=== PATIENT | male | born 1970 | race Caucasian/White ===

== ENCOUNTER → 2019-12-19 10:51 | Outpatient (BNVA) | payer OTHER, SELFPAY | PROVIDERS: PCP Nurse Practitioner Family; Referring Provider Nurse Practitioner Family; Visit Provider Student in an Organized Health Care Education/Training Program | DX: M06.00 Rheumatoid arthritis without rheumatoid factor, unspecified site (principal); M10.9 Gout, unspecified; Z79.899 Other long term (current) drug therapy | CPT/HCPCS: 99214 ==

== ENCOUNTER 2019-12-19 19:16 | Outpatient (REF) | payer OTHER, SELFPAY ==
[2019-12-19 12:21] LABS: MANUAL DIFF FLAG NO
[2019-12-19 12:23] LABS: Basophils Absolute Auto 0.1 X10*3/uL (0.0-0.2); Basophils Percent Auto 1.4 % (0-2); Eosinophils Absolute Auto 0.4 X10*3/uL (0.0-0.4); Eosinophils Percent Auto 5.3 % (0-4); Hematocrit 34.8 % (42-52); Hemoglobin 11.7 g/dl (14.0-18.0); Imm Gran Abs Auto 0.01 X10*3/uL (0.00-0.03); Imm Gran Pct Auto 0.1 % (0.0-0.4); Lymphocytes Absolute Auto 2.1 X10*3/uL (1.2-4.9); Lymphocytes Percent Auto 28.4 % (20-40); Mean Corpuscular HGB Conc 33.6 g/dl (31.0-36.0); Mean Corpuscular Hemoglobin 30.6 pg (27.0-33.0); Mean Corpuscular Volume 91.1 fL (80-98); Mean Platelet Volume 9.5 fL (9.4-12.4); Monocytes Absolute Auto 0.5 X10*3/uL (0.1-1.2); Monocytes Percent Auto 6.6 % (2-11); Neutrophils Absolute Auto 4.2 X10*3/uL (2.0-8.3); Neutrophils Percent Auto 58.2 % (45-73); Platelet Count 247 X10*3/uL (160-400); Red Blood Count 3.82 X10*6/uL (4.60-5.80); Red Cell Distribution Width 13.2 % (11.0-16.0); White Blood Count 7.3 X10*3/uL (4.8-10.8)
[2019-12-19 13:07] LABS: Erythrocyte Sedimentation Rate 13 MM/HR (0-15)
[2019-12-19 13:38] LABS: Alanine Aminotransferase 28 U/L (0-40); Albumin Level 4.4 g/dL (3.5-5.0); Alkaline Phosphatase 92 U/L (39-117); Anion Gap 13 (12-20); Aspartate Amino Transferase 18 U/L (5-37); Bilirubin Total 0.4 mg/dL (0.0-1.0); Blood Urea Nitrogen 29 mg/dL (9-16); C Reactive Protein 0.84 mg/dL (< or = 0.50); Calcium 9.3 mg/dL (8.4-10.2); Carbon Dioxide 29 mmol/L (22-29); Chloride 107 mmol/L (96-108); Estimated Glomerular Filt Rate > 60; Glucose Random 100 mg/dL (60-115); Potassium 4.1 mmol/l (3.3-5.1); Sodium 145 mmol/L (135-145); Total Protein 7.2 g/dL (6.5-8.0)
== END 2019-12-19 19:17 | disposition home or self-care (01) ==
LOC: HO.LNP 19:16
PROVIDERS: Visit Provider Student in an Organized Health Care Education/Training Program
DX: M06.9 Rheumatoid arthritis, unspecified (principal)
CPT/HCPCS: 36415; 80053; 85025; 85652; 86140

== ENCOUNTER → 2020-03-25 12:56 | Outpatient (BNVA) | payer OTHER, SELFPAY | PROVIDERS: PCP Nurse Practitioner Family; Referring Provider Nurse Practitioner Family; Visit Provider Student in an Organized Health Care Education/Training Program | DX: Z76.89 Persons encountering health services in other specified circumstances (principal) ==

== ENCOUNTER 2020-07-23 13:12 | Outpatient (REF) | payer OTHER, SELFPAY ==
[2020-07-23 14:14] LABS: MANUAL DIFF FLAG NO
[2020-07-23 14:24] LABS: Basophils Absolute Auto 0.1 X10*3/uL (0.0-0.2); Basophils Percent Auto 1.9 % (0-2); Eosinophils Absolute Auto 0.3 X10*3/uL (0.0-0.4); Eosinophils Percent Auto 5.5 % (0-4); Hematocrit 36.4 % (42-52); Hemoglobin 11.6 g/dl (14.0-18.0); Imm Gran Abs Auto 0.01 X10*3/uL (0.00-0.03); Imm Gran Pct Auto 0.2 % (0.0-0.4); Lymphocytes Absolute Auto 1.9 X10*3/uL (1.2-4.9); Lymphocytes Percent Auto 32.1 % (20-40); Mean Corpuscular HGB Conc 31.9 g/dl (31.0-36.0); Mean Corpuscular Hemoglobin 28.9 pg (27.0-33.0); Mean Corpuscular Volume 90.5 fL (80-98); Monocytes Absolute Auto 0.3 X10*3/uL (0.1-1.2); Monocytes Percent Auto 5.2 % (2-11); Neutrophils Absolute Auto 3.2 X10*3/uL (2.0-8.3); Neutrophils Percent Auto 55.1 % (45-73); Platelet Count 233 X10*3/uL (160-400); Red Blood Count 4.02 X10*6/uL (4.60-5.80); Red Cell Distribution Width 12.9 % (11.0-16.0); White Blood Count 5.8 X10*3/uL (4.8-10.8)
[2020-07-23 14:56] LABS: Alanine Aminotransferase 20 U/L (0-40); Albumin Level 4.2 g/dL (3.5-5.0); Alkaline Phosphatase 85 U/L (39-117); Anion Gap 12 (12-20); Aspartate Amino Transferase 20 U/L (5-37); Bilirubin Total 0.6 mg/dL (0.0-1.0); Blood Urea Nitrogen 18 mg/dL (9-16); Calcium 9.3 mg/dL (8.4-10.2); Carbon Dioxide 31 mmol/L (22-29); Chloride 101 mmol/L (96-108); Estimated Glomerular Filt Rate > 60; Glucose Random 89 mg/dL (60-115); Iron 55 mcg/dL (45-160); Percent Iron Saturation 16 % (15-50); Potassium 4.4 mmol/L (3.3-5.1); Sodium 140 mmol/L (135-145); Total Iron Binding Capacity 347 mcg/dL (228-428); Unsaturated Iron Binding 292 ug/dL
[2020-07-23 14:57] LABS: Ferritin 67 ng/mL (20-250); TSH reflex Free T4 2.08 uIU/mL (0.32-4.0)
[2020-07-23 15:02] LABS: Vitamin B12 633 pg/mL (200-900)
== END 2020-07-23 13:13 | disposition home or self-care (01) ==
LOC: HO.HMGCLDS 13:12
PROVIDERS: Student in an Organized Health Care Education/Training Program; PCP Nurse Practitioner Family; Visit Provider Nurse Practitioner Family
DX: M06.00 Rheumatoid arthritis without rheumatoid factor, unspecified site (principal); R53.83 Other fatigue
CPT/HCPCS: 36415; 80053; 82607; 82728; 83540; 84443; 85025; 86140

== ENCOUNTER → 2020-07-30 09:32 | Outpatient (BNVA) | payer OTHER, SELFPAY | PROVIDERS: PCP Nurse Practitioner Family; Visit Provider Student in an Organized Health Care Education/Training Program | DX: M06.00 Rheumatoid arthritis without rheumatoid factor, unspecified site (principal); M1A.00X0 Idiopathic chronic gout, unspecified site, without tophus (tophi); Z79.899 Other long term (current) drug therapy | CPT/HCPCS: 99212 ==

== ENCOUNTER 2020-09-30 | Outpatient (REF) | payer OTHER, SELFPAY ==
[2020-10-06 07:36] LABS: FIT1 NEGATIVE (NEGATIVE)
[2020-10-06 07:37] LABS: FIT Int Ctl YES
== END 2020-09-30 00:01 | disposition home or self-care (01) ==
LOC: HO.LNP
PROVIDERS: Visit Provider Nurse Practitioner Family
DX: Z12.11 Encounter for screening for malignant neoplasm of colon (principal); D64.9 Anemia, unspecified
CPT/HCPCS: 82274

== ENCOUNTER 2020-10-28 14:38 | Outpatient (REF) | payer OTHER, SELFPAY ==
[2020-10-28 16:23] LABS: MANUAL DIFF FLAG NO
[2020-10-28 16:26] LABS: Basophils Absolute Auto 0.1 X10*3/uL (0.0-0.2); Basophils Percent Auto 0.9 % (0-2); Eosinophils Absolute Auto 0.3 X10*3/uL (0.0-0.4); Eosinophils Percent Auto 4.9 % (0-4); Hematocrit 33.7 % (42-52); Imm Gran Abs Auto 0.02 X10*3/uL (0.00-0.03); Imm Gran Pct Auto 0.4 % (0.0-0.4); Lymphocytes Absolute Auto 1.3 X10*3/uL (1.2-4.9); Lymphocytes Percent Auto 22.9 % (20-40); Mean Corpuscular HGB Conc 32.6 g/dl (31.0-36.0); Mean Corpuscular Hemoglobin 30.2 pg (27.0-33.0); Mean Corpuscular Volume 92.6 fL (80-98); Mean Platelet Volume 10.1 fL (9.4-12.4); Monocytes Absolute Auto 0.4 X10*3/uL (0.1-1.2); Monocytes Percent Auto 6.7 % (2-11); Neutrophils Absolute Auto 3.6 X10*3/uL (2.0-8.3); Neutrophils Percent Auto 64.2 % (45-73); Platelet Count 247 X10*3/uL (160-400); Red Blood Count 3.64 X10*6/uL (4.60-5.80); Red Cell Distribution Width 13.5 % (11.0-16.0); White Blood Count 5.6 X10*3/uL (4.8-10.8)
[2020-10-28 16:58] LABS: Alanine Aminotransferase 16 U/L (0-40); Albumin Level 4.1 g/dL (3.5-5.0); Alkaline Phosphatase 81 U/L (39-117); Anion Gap 11 (12-20); Aspartate Amino Transferase 16 U/L (5-37); Bilirubin Total 0.5 mg/dL (0.0-1.0); Blood Urea Nitrogen 17 mg/dL (9-16); C Reactive Protein 0.84 mg/dL (< or = 0.50); Calcium 9.2 mg/dL (8.4-10.2); Carbon Dioxide 29 mmol/L (22-29); Chloride 104 mmol/L (96-108); Estimated Glomerular Filt Rate > 60; Glucose Random 100 mg/dL (60-115); Potassium 4.4 mmol/L (3.3-5.1); Sodium 140 mmol/L (135-145); Total Protein 6.9 g/dL (6.5-8.0); Uric Acid 7.4 mg/dL (3.4-7.0)
== END 2020-10-28 14:39 | disposition home or self-care (01) ==
LOC: HO.HMGCLDS 14:38
PROVIDERS: PCP Nurse Practitioner Family; Visit Provider Student in an Organized Health Care Education/Training Program
DX: M06.00 Rheumatoid arthritis without rheumatoid factor, unspecified site (principal); M1A.00X0 Idiopathic chronic gout, unspecified site, without tophus (tophi)
CPT/HCPCS: 36415; 80053; 84550; 85025; 86140

== ENCOUNTER → 2020-11-03 13:04 | Outpatient (BNVA) | payer OTHER, SELFPAY | PROVIDERS: PCP Nurse Practitioner Family; Visit Provider Nurse Practitioner Family | DX: M06.00 Rheumatoid arthritis without rheumatoid factor, unspecified site (principal); M1A.00X0 Idiopathic chronic gout, unspecified site, without tophus (tophi); Z79.899 Other long term (current) drug therapy | CPT/HCPCS: 99212 ==

== ENCOUNTER 2021-04-20 07:48 | Outpatient (REF) | payer OTHER, SELFPAY ==
[2021-04-20 11:32] LABS: Appearance Urine CLEAR; Color Urine YELLOW; Glucose Urine UA NEG (NEG); Leukocyte Esterase Urine NEG (NEG); Nitrite Urine NEG (NEG); Specific Gravity - Urine 1.015 (1.005-1.025); Urine Blood NEG (NEG); Urine Ketones NEG (NEG); Urine Protein NEG (NEG-TRACE)
[2021-04-20 11:36] LABS: MANUAL DIFF FLAG NO
[2021-04-20 11:38] LABS: Basophils Absolute Auto 0.1 X10*3/uL (0.0-0.2); Basophils Percent Auto 1.4 % (0-2); Eosinophils Absolute Auto 0.2 X10*3/uL (0.0-0.4); Eosinophils Percent Auto 3.6 % (0-4); Hematocrit 33.5 % (42.0-52.0); Hemoglobin 10.6 g/dl (14.0-18.0); Lymphocytes Absolute Auto 1.5 X10*3/uL (1.2-4.9); Lymphocytes Percent Auto 34.8 % (20-40); Mean Corpuscular HGB Conc 31.6 g/dl (31.0-36.0); Mean Corpuscular Hemoglobin 28.7 pg (27.0-33.0); Mean Corpuscular Volume 90.8 fL (80.0-98.0); Mean Platelet Volume 9.8 fL (9.4-12.4); Monocytes Absolute Auto 0.4 X10*3/uL (0.1-1.2); Monocytes Percent Auto 7.9 % (2-11); Neutrophils Absolute Auto 2.3 x10*3/uL (2.0-8.3); Neutrophils Percent Auto 52.3 % (45-73); Platelet Count 358 X10*3/uL (160-400); Red Blood Count 3.69 X10*6/uL (4.60-5.80); White Blood Count 4.4 X10*3/uL (4.8-10.8)
[2021-04-20 12:00] LABS: Alanine Aminotransferase 21 U/L (0-40); Albumin Level 3.9 g/dL (3.5-5.0); Alkaline Phosphatase 80 U/L (39-117); Anion Gap 9 (12-20); Aspartate Amino Transferase 18 U/L (5-37); Bilirubin Total 0.6 mg/dL (0.0-1.0); Blood Urea Nitrogen 13 mg/dL (9-16); C Reactive Protein 0.73 mg/dL (< or = 0.50); Carbon Dioxide 31 mmol/L (22-29); Chloride 102 mmol/L (96-108); Cholesterol 158 mg/dL; Estimated Glomerular Filt Rate > 60; Glucose Fasting 105 mg/dL (60-99); HDL Cholesterol 44 mg/dL; LDL Cholesterol Calculated 95 mg/dl; Potassium 4.3 mmol/L (3.3-5.1); Sodium 138 mmol/L (135-145); Total Protein 7.6 g/dL (6.5-8.0); Triglycerides 96 mg/dL
[2021-04-20 12:21] LABS: Prostate Specific Antigen Scr 1.92 ng/mL (<0.05-4.0); TSH reflex Free T4 0.53 uIU/mL (0.32-4.0)
[2021-04-20 12:29] LABS: Erythrocyte Sedimentation Rate 65 MM/HR (0-15)
[2021-04-20 14:14] LABS: Iron 60 mcg/dL (45-160); Percent Iron Saturation 20 % (15-50); Total Iron Binding Capacity 301 mcg/dL (228-428); Unsaturated Iron Binding 241 ug/dL
[2021-04-20 14:32] LABS: Ferritin 105 ng/mL (20-250)
== END 2021-04-20 07:49 | disposition home or self-care (01) ==
LOC: HO.HMGCLDS 07:48
PROVIDERS: PCP Nurse Practitioner Family; Visit Provider Nurse Practitioner Family
DX: Z00.00 Encounter for general adult medical examination without abnormal findings (principal); Z12.5 Encounter for screening for malignant neoplasm of prostate; M06.00 Rheumatoid arthritis without rheumatoid factor, unspecified site; M1A.00X0 Idiopathic chronic gout, unspecified site, without tophus (tophi)
CPT/HCPCS: 36415; 80053; 80061; 81003; 82728; 83540; 84153; 84443; 84550; 85025; 85652; 86140

== ENCOUNTER → 2021-05-17 11:01 | Outpatient (BNVA) | payer OTHER, SELFPAY | PROVIDERS: PCP Nurse Practitioner Family; Visit Provider Orthopaedic Surgery | DX: M12.811 Other specific arthropathies, not elsewhere classified, right shoulder (principal); M06.00 Rheumatoid arthritis without rheumatoid factor, unspecified site; Z79.899 Other long term (current) drug therapy | CPT/HCPCS: 20610; 99202; J1100 ==

== ENCOUNTER → 2021-05-27 08:41 | Outpatient (BNVA) | payer OTHER, SELFPAY | PROVIDERS: PCP Nurse Practitioner Family; Visit Provider Nurse Practitioner Family | DX: M06.00 Rheumatoid arthritis without rheumatoid factor, unspecified site (principal); M1A.00X0 Idiopathic chronic gout, unspecified site, without tophus (tophi); Z79.899 Other long term (current) drug therapy | CPT/HCPCS: 99212 ==

== ENCOUNTER → 2021-06-29 13:01 | Outpatient (BNVA) | payer OTHER, SELFPAY | PROVIDERS: PCP Nurse Practitioner Family; Visit Provider Nurse Practitioner Family | DX: M06.00 Rheumatoid arthritis without rheumatoid factor, unspecified site (principal); M1A.00X0 Idiopathic chronic gout, unspecified site, without tophus (tophi); D64.9 Anemia, unspecified; Z79.899 Other long term (current) drug therapy | CPT/HCPCS: 99212 ==

== ENCOUNTER → 2021-07-08 15:32 | Outpatient (BNVA) | payer OTHER, SELFPAY | PROVIDERS: PCP Nurse Practitioner Family; Visit Provider Orthopaedic Surgery | DX: M25.562 Pain in left knee (principal) | CPT/HCPCS: 20610; 99212; J1100 ==

== ENCOUNTER 2021-07-26 14:58 | Outpatient (REF) | payer OTHER, SELFPAY ==
--- NOTE | ~2021-07-26 | XR_ITS ---
EXAMINATION: XR KNEE, LEFT XR FOOT, RIGHT XR FOOT, LEFT XR ANKLE, RIGHT XR ANKLE, LEFT XR HAND AND WRIST, RIGHT XR HAND AND WRIST, LEFT CLINICAL INFORMATION: Rheumatoid arthritis. COMPARISON: None TECHNIQUE: 3 views each foot. 2 views each ankle. 3 views each wrist and 2 views left knee. FINDINGS: RIGHT FOOT: There is moderate hallux valgus deformity 1st MTP joint with moderate periarticular spurring and loss of joint space. Also loss of PIP joint first digit is noted. No visible acute fracture or dislocation seen. There are large retrocalcaneal and small to moderate size calcaneal heel enthesophytes. The ankle mortise and subtalar joints are normal. RIGHT ANKLE: The ankle mortise and subtalar joints are normal. The soft tissues are normal. LEFT FOOT: There is moderate hallux valgus deformity 1st MTP joint with periarticular spurring and loss of joint space. No visible acute fracture, dislocation or subluxation seen. No bony erosive changes. The soft tissues are normal. LEFT ANKLE: There are a moderate size retrocalcaneal and small calcaneal heel enthesophytes. The ankle mortise and subtalar joints are normal. There is dorsal intertarsal spurring. The soft tissues are normal. LEFT KNEE: There is minimal loss of patellofemoral compartment joint space with anterior superior patellar enthesophyte. No abnormal joint effusion seen. The soft tissues are normal. RIGHT HAND/WRIST: There is mild loss of first digit PIP joint space with periarticular spurring. Minimal loss of PIP and DIP joint space of all digits is seen. There is minimal periapical spurring fifth digit. No acute fracture, dislocation or bony erosive changes. The soft tissues are normal. LEFT HAND/WRIST: There is soft tissue radiopaque foreign body along the radial aspect of the thumb. There is loss of PIP and DIP joint space all digits with periarticular spurring. The soft tissues are normal. XR/XR foot LT min 3V IMPRESSION: Mild degenerative changes of both hands with minimal periarticular spurring as described above. No acute fracture or dislocation. There is a radiopaque foreign body in the radial aspect of the 1st metacarpal. Mild degenerative changes patellofemoral compartment left knee with anterior superior patellar enthesophytes. Mild degenerative changes with loss of joint space and periarticular spurring in MTP joint both feet. Also visualized are degenerative arthritic changes PIP joint first digit right foot. There are small calcaneal heel and retrocalcaneal enthesophytes.
[2021-07-26 16:30] LABS: Appearance Urine CLEAR; Color Urine YELLOW; Glucose Urine UA NEG (NEG); Leukocyte Esterase Urine NEG (NEG); Nitrite Urine NEG (NEG); PH 5.5 (5.0-8.0); Specific Gravity - Urine >= 1.030 (1.005-1.025); Urine Blood NEG (NEG); Urine Ketones NEG (NEG); Urine Protein NEG (NEG-TRACE)
[2021-07-26 16:46] LABS: Alanine Aminotransferase 27 U/L (0-40); Albumin Level 3.9 g/dL (3.5-5.0); Alkaline Phosphatase 63 U/L (39-117); Anion Gap 11 (12-20); Aspartate Amino Transferase 12 U/L (5-37); Bilirubin Total 0.4 mg/dL (0.0-1.0); Blood Urea Nitrogen 27 mg/dL (9-16); Carbon Dioxide 28 mmol/L (22-29); Chloride 99 mmol/L (96-108); Cholesterol 176 mg/dL; Estimated Glomerular Filt Rate 54; Glucose Fasting 119 mg/dL (60-99); HDL Cholesterol 49 mg/dL; Iron 67 mcg/dL (45-160); LDL Cholesterol Calculated 96 mg/dl; Percent Iron Saturation 19 % (15-50); Potassium 4.9 mmol/L (3.3-5.1); Sodium 133 mmol/L (135-145); Total Iron Binding Capacity 347 mcg/dL (228-428); Triglycerides 155 mg/dL; Unsaturated Iron Binding 280 ug/dL
[2021-07-26 17:08] LABS: TSH reflex Free T4 0.94 uIU/mL (0.32-4.0)
[2021-07-26 17:09] LABS: Ferritin 87 ng/mL (20-250)
[2021-07-27 04:38] LABS: HBS Num1 5.92 mIU/mL (0-7.99); HBc Num1 0.16 S/CO (0.00-0.79); HBsAGNum1 0.22 S/CO (0.00-0.99); Hepatitis B Core Antibody Nonreactive (Nonreactive); Hepatitis B Surface Antigen Negative (Negative); ~HepC Num1 0.13 S/CO (0.00-0.79); ~Hepatitis B Surface Antibody NONREACTIVE (Nonreactive); ~Hepatitis C Antibody Nonreactive (Nonreactive)
[2021-07-28 04:10] LABS: Hepatitis A Antibody IgM 0.24 Index (0-0.79); ~Hepatitis A Antibody IgM Nonreactive (Nonreactive)
== END 2021-07-26 14:59 | disposition home or self-care (01) ==
LOC: HO.HMGCX 14:58
PROVIDERS: Absent Provider Nurse Practitioner Family; PCP Nurse Practitioner Family; Visit Provider Nurse Practitioner Family
DX: Z11.1 Encounter for screening for respiratory tuberculosis (principal); M25.572 Pain in left ankle and joints of left foot; M25.571 Pain in right ankle and joints of right foot; M25.562 Pain in left knee; F32.9 Major depressive disorder, single episode, unspecified; D64.9 Anemia, unspecified; M06.00 Rheumatoid arthritis without rheumatoid factor, unspecified site
CPT/HCPCS: 36415; 73110; 73130; 73560; 73600; 73630; 80053; 80061; 81003; 82728; 83540; 84443; 86704; 86706; 86709; 86803; 87340

== ENCOUNTER → 2021-07-27 10:38 | Outpatient (BNVA) | payer OTHER, SELFPAY | PROVIDERS: PCP Nurse Practitioner Family; Visit Provider Nurse Practitioner Family | DX: Z13.89 Encounter for screening for other disorder (principal) ==

== ENCOUNTER 2021-07-27 10:45 | Observation (INO) | payer OTHER, SELFPAY ==
[2021-07-27] VITALS (10 sets, daily range): BP systolic 99–146; BP diastolic 58–98; PULSE 48–91; RESP 12–18; TEMP 36.1–36.9; O2SAT 94–99; BMI 33.2
--- NOTE | 2021-07-27 | ECG_ITS ---
Test Reason : DIZZINESS Blood Pressure : / mmHG Vent. Rate : 051 BPM Atrial Rate : 051 BPM P-R Int : 200 ms QRS Dur : 078 ms QT Int : 472 ms P-R-T Axes : 033 022 040 degrees QTc Int : 435 ms Sinus bradycardia Otherwise normal ECG No previous ECGs available Referred By: Generic ED Physician Electronically Signed By:COLLIN NOLASCO MD
--- NOTE | ~2021-07-27 | XR_ITS ---
EXAMINATION: XR CHEST CLINICAL INFORMATION: Hypotension COMPARISON: None TECHNIQUE: Frontal view of the chest was obtained. FINDINGS: The cardiac and mediastinal contours are normal. The lungs are clear. There is no pleural effusion or pneumothorax. There are degenerative changes of the spine. XR/XR chest 1V IMPRESSION: No evidence for acute disease in the chest.
[2021-07-27 11:20] LABS: MANUAL DIFF FLAG NO
[2021-07-27 11:23] LABS: Basophils Absolute Auto 0.1 X10*3/uL (0.0-0.2); Basophils Percent Auto 0.7 % (0-2); Eosinophils Absolute Auto 0.2 X10*3/uL (0.0-0.4); Eosinophils Percent Auto 2.1 % (0-4); Hematocrit 31.8 % (42.0-52.0); Hemoglobin 10.5 g/dl (14.0-18.0); Imm Gran Abs Auto 0.02 X10*3/uL (0.00-0.03); Imm Gran Pct Auto 0.2 % (0.0-0.4); Lymphocytes Absolute Auto 2.6 X10*3/uL (1.2-4.9); Lymphocytes Percent Auto 30.1 % (20-40); Mean Corpuscular Hemoglobin 29.5 pg (27.0-33.0); Mean Corpuscular Volume 89.3 fL (80.0-98.0); Mean Platelet Volume 9.3 fL (9.4-12.4); Monocytes Absolute Auto 0.6 X10*3/uL (0.1-1.2); Monocytes Percent Auto 6.9 % (2-11); Neutrophils Absolute Auto 5.2 x10*3/uL (2.0-8.3); Platelet Count 314 X10*3/uL (160-400); Red Blood Count 3.56 X10*6/uL (4.60-5.80); White Blood Count 8.7 X10*3/uL (4.8-10.8)
--- NOTE | 2021-07-27 11:31 | ED.SYNCOPE ---
HPI - Syncope General Chief Complaint: Dizziness Stated Complaint: Low blood pressure/Dizzy/Abnormal blood work Time Seen by Provider: 07/27/21 11:24 Source: patient Mode of arrival: ambulatory Limitations: no limitations History of Present Illness HPI narrative: 51 years old male came in for evaluation of low blood pressure and feeling dizzy. 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 Patient complained today is dizziness and lightheadedness especially with changing position, otherwise declined any recent change of his medication list, no chest pain, no shortness of breath. Related Data Home Medications Medication Instructions Recorded Confirmed colchicine 0.6 mg capsule 0.6 mg PO DAILY PRN 07/30/20 06/30/21 Previous Rx's Medication Instructions Recorded atorvastatin 10 mg tablet 10 mg PO BEDTIME 90 Days #90 tab 12/30/20 lisinopril 20 mg tablet 20 mg PO DAILY #90 tab 12/30/20 sertraline 25 mg tablet 25 mg PO DAILY 30 Days #90 tab 02/17/21 tramadol 50 mg tablet 50 mg PO TID PRN 30 Days #90 tab 03/24/21 metoprolol succinate 25 mg 25 mg PO DAILY #90 tab 05/26/21 tablet,extended release 24 hr allopurinol 300 mg tablet 300 mg PO DAILY #30 tab 05/27/21 folic acid 1 mg tablet 1 mg PO DAILY #90 tab 06/16/21 prednisone 10 mg tablet 10 mg PO .COMPLEX #18 tab 07/21/21 Allergies Allergy/AdvReac Type Severity Reaction Status Date / Time codeine [CODEINE] Allergy Mild HIVES, Verified 07/08/21 15:34 vomiting ibuprofen [IBUPROFEN] Allergy Unknown HIVES Verified 07/08/21 15:34 Bee stings Allergy Unknown Swelling Uncoded 06/30/21 14:26 Review of Systems Review of Systems: All other systems are reviewed and are negative Constitutional: Reports as per HPI and Reports no additional constitutional complaints Eyes: Reports as per HPI and Reports no additional eye complaints Reports system reviewed and no additional complaints, except as documented Cardiovascular: Reports as per HPI and Reports no additional cardiovascular complaints Respiratory: Reports as per HPI and Reports no additional respiratory complaints Gastrointestinal: Reports as per HPI and Reports no additional gastrointestinal complaints Genitourinary: Reports no additional female genitourinary complaints Musculoskeletal: Reports no additional musculoskeletal complaints Skin/Breast: Reports system reviewed and no additional complaints, except as docu Psychiatric: Reports no additional psychiatric complaints Endocrine: Reports no additional endocrine complaints Hematologic/Lymphatic: Reports no additional hematologic/lymphatic complaints Allergic/Immunologic: Reports no additional allergic/immunologic complaints Reports system reviewed and no additional complaints, except as documented and Reports Abnormal speech present [facility] Past Medical History Medical History Gout Seronegative rheumatoid arthritis Family History Family History Mother Diabetes Maternal Grandfather Gout Social History Social History Household Members: Spouse and Children Housing: House Alcohol intake: current Alcohol intake frequency: holidays/special occasions only Alcohol type: beer and hard liquor Patient Tobacco Use Status: Never used Tobacco Tobacco use type: Cigar Years Smoked: 3 years e-Cigarette/Vaping Use: Never Used Second Hand Smoke Exposure: No Use of substances other than those prescribed or required for medical reasons: No Advance Directives: No Advance Directives Information Provided: No service: No Current occupational status: employed Current occupation: [employer] Current occupational exposures/hazards: No Cognitive needs: No Hearing needs: No Vision needs: No Physical Exam Vital Signs: Vital Signs: Last Vital Signs Temp 98.4 F 07/27/21 11:46 Pulse 58 07/27/21 12:46 Resp 18 07/27/21 12:46 BP 121/83 07/27/21 12:46 Pulse Ox 97 07/27/21 12:46 BMI result Body Mass Index 33.2 Vital signs have been reviewed as appeared to be correct. Blood pressure normal (reportedly by the patient normally higher than that)Heart rate low Respiration rate normal. Temperature normal. Oxygen saturation normal. Appearance: Alert. Oriented X3. No acute distress. Head: Normal external exam. Normocephalic. Atraumatic. No Mcmahan signs noted. No raccoon eyes noted Eyes: PERRLA. EOMI. Conjunctiva and sclera normal. Eyelids normal. ENT: TM's Normal. Pharynx normal. Uvula midline. Moist mucous membranes. No trismus noted. No drooling noted. No muffled voice noted. Neck: Normal inspection. Neck supple. FROM. No adenopathy. Thyroid Normal. No meningeal signs. No neck mass noted. CVS: Normal heart rate and rhythm. Heart sound normal. No murmurs noted. Pulses normal throughout. Respiratory: No respiratory distress. Painless inspiration. Breath sounds normal. No wheezes/rales/rhonchi noted. Chest nontender. No accessory muscle usage noted or decreased air movement noted. Abdomen: Soft and nontender. Bowel sounds normal in all 4 quadrants. No distention noted. No organomegaly noted. No visible injury noted. Back: No CVA tenderness. Full range of motion noted. Skin: Skin warm and dry. Normal skin color. Normal skin turgor. No rashes/lesions/lacerations noted. Extremities: No lower extremity edema. Extremities exhibit normal range of motion. Extremities nontender. Neuro: Oriented X 3. Cranial nerve exam: II-XII are grossly intact No motor deficit. No sensory deficit. Reflexes normal. Course Course Course Narrative: Assessment and plan. 51-year-old male history of hypertension brought 10 from Office for evaluation of lightheadedness, patient found to be bradycardic with lower blood pressure, patient take lisinopril/metoprolol for controlling blood pressure which could be reason for patient's symptoms. Patient also found to be anemic at baseline anemia which could be related to chronic rheumatoid arthritis disease but patient declined any rectal bleeding. Cardiac workup is negative, with elevation of BUN creatinine above patient baseline physical exam did not reveal dehydration. Admitting patient for hydration and checking a renal function, maybe blood pressure medication adjustment. Reevaluation(s) Reevaluation #1: Patient is complaining of epigastric/chest pain described as stabbing pain localized to the epigastric area with no radiation, no difficulty breathing with that, repeat EKG was ordered and reviewed. Time: 12:58 MDM - Syncope Lab Data Attestation: I reviewed the patient's lab results. Result diagrams: 07/27/21 11:15 07/27/21 11:15 Labs: Lab Results 07/27/21 07/27/21 07/27/21 Range/Units 11:15 11:15 11:15 WBC 8.7 (4.8-10.8) X10*3/uL RBC 3.56 L (4.60-5.80) X10*6/uL Hgb 10.5 L (14.0-18.0) g/dl Hct 31.8 L (42.0-52.0) % MCV 89.3 (80.0-98.0) fL MCH 29.5 (27.0-33.0) pg MCHC 33.0 (31.0-36.0) g/dl RDW 14.0 (11.0-16.0) % Plt Count 314 (160-400) X10*3/uL MPV 9.3 L (9.4-12.4) fL Immature Gran % (Auto) 0.2 (0.0-0.4) % Neut % (Auto) 60.0 (45-73) % Lymph % (Auto) 30.1 (20-40) % [place] % (Auto) 6.9 (2-11) % Eos % (Auto) 2.1 (0-4) % Baso % (Auto) 0.7 (0-2) % Lymph # (Auto) 2.6 (1.2-4.9) X10*3/uL [place] # (Auto) 0.6 (0.1-1.2) X10*3/uL Eos # (Auto) 0.2 (0.0-0.4) X10*3/uL Baso # (Auto) 0.1 (0.0-0.2) X10*3/uL Abs Immat Gran (auto) 0.02 (0.00-0.03) X10*3/uL Absolute Neuts (auto) 5.2 (2.0-8.3) x10*3/uL Absolute Nucleated RBC 0.000 (0.0-0.012) X10*3/uL Nucleated RBC % (auto) 0.0 (0.0-0.2) /100WBC Sodium 135 (135-145) mmol/L Potassium 4.0 (3.3-5.1) mmol/L Chloride 99 (96-108) mmol/L Carbon Dioxide 26 (22-29) mmol/L Anion Gap 14 (12-20) BUN 29 H (9-16) mg/dL Creatinine 1.64 H (0.5-1.4) mg/dL Estim Creat Clear Calc 74.1 Estimated GFR 45 Random Glucose 115 (60-115) mg/dL Calcium 9.5 (8.4-10.2) mg/dL Troponin I High Sens < 3.5 (<3.5-35.0) ng/L B-Natriuretic Peptide 156 H (<100) pg/mL COVID-19 (TE) (Negative) COVID-19 Clin Com 07/27/21 Range/Units 12:21 WBC (4.8-10.8) X10*3/uL RBC (4.60-5.80) X10*6/uL Hgb (14.0-18.0) g/dl Hct (42.0-52.0) % MCV (80.0-98.0) fL MCH (27.0-33.0) pg MCHC (31.0-36.0) g/dl RDW (11.0-16.0) % Plt Count (160-400) X10*3/uL MPV (9.4-12.4) fL Immature Gran % (Auto) (0.0-0.4) % Neut % (Auto) (45-73) % Lymph % (Auto) (20-40) % [place] % (Auto) (2-11) % Eos % (Auto) (0-4) % Baso % (Auto) (0-2) % Lymph # (Auto) (1.2-4.9) X10*3/uL [place] # (Auto) (0.1-1.2) X10*3/uL Eos # (Auto) (0.0-0.4) X10*3/uL Baso # (Auto) (0.0-0.2) X10*3/uL Abs Immat Gran (auto) (0.00-0.03) X10*3/uL Absolute Neuts (auto) (2.0-8.3) x10*3/uL Absolute Nucleated RBC (0.0-0.012) X10*3/uL Nucleated RBC % (auto) (0.0-0.2) /100WBC Sodium (135-145) mmol/L Potassium (3.3-5.1) mmol/L Chloride (96-108) mmol/L Carbon Dioxide (22-29) mmol/L Anion Gap (12-20) BUN (9-16) mg/dL Creatinine (0.5-1.4) mg/dL Estim Creat Clear Calc Estimated GFR Random Glucose (60-115) mg/dL Calcium (8.4-10.2) mg/dL Troponin I High Sens (<3.5-35.0) ng/L B-Natriuretic Peptide (<100) pg/mL COVID-19 (TE) Negative (Negative) COVID-19 Clin Com See Note Imaging Data Chest x-ray: Attestation: I personally reviewed and interpreted this imaging study as follows: Radiologist's impression: No evidence for acute disease in the chest. ECG Data Attestation: I personally reviewed and interpreted this ECG as follows: Interpretation: Sinus bradycardia at 51 beats per minute, normal axis deviation, normal intervals, no ST-T changes. Discharge Plan Discharge Clinical Impression: Symptomatic sinus bradycardia, Acute kidney injury, Syncope Patient Disposition: Admitted As Inpatient
[2021-07-27] MEDS: 0.9 % Sodium Chloride 1,000 ML 999 ML IV (11:36)
[2021-07-27 11:38] LABS: Anion Gap 14 (12-20); Blood Urea Nitrogen 29 mg/dL (9-16); Calcium 9.5 mg/dL (8.4-10.2); Carbon Dioxide 26 mmol/L (22-29); Chloride 99 mmol/L (96-108); Creatinine Clr Calc Pharmacy 74.1; Estimated Glomerular Filt Rate 45; Glucose Random 115 mg/dL (60-115); Sodium 135 mmol/L (135-145)
[2021-07-27 11:43] LABS: Troponin-I High Sensitivity < 3.5 ng/L (<3.5-35.0)
[2021-07-27 11:51] LABS: B Type Natriuretic Peptide 156 pg/mL (<100)
[2021-07-27 12:49] LABS: COVID-19 Test Negative (Negative); IDNOW Serial# 9DB6401D
--- NOTE | 2021-07-27 12:50 | PC.NURSE ---
Pt is alert, no dizziness/lightheadedness at this time. skin pwd. no neuro deficits. at bedside. all aware of plan of care. c/o chest pain/tightness, intermittent while at rest radiates to upper chest. no diaphoresis, sob, . also c/o thirst and fatigue.
--- NOTE | 2021-07-27 12:57 | ECG_ITS ---
Test Reason : cp Blood Pressure : / mmHG Vent. Rate : 046 BPM Atrial Rate : 046 BPM P-R Int : 198 ms QRS Dur : 084 ms QT Int : 476 ms P-R-T Axes : 025 012 031 degrees QTc Int : 416 ms Sinus bradycardia with sinus arrhythmia Otherwise normal ECG When compared with ECG of 27-JUL-2021 11:05, No significant change was found Referred By: Flower Mohan Electronically Signed By:COLLIN NOLASCO MD
--- NOTE | 2021-07-27 12:58 | P.HPHOSP_ITS ---
History of Present Illness Date of Service: 07/27/21 Chief Complaint: Near-syncope 51-year-old male with a steroid negative rheumatoid arthritis, hypertension who presented with a near syncopal episode. Patient reports that yesterday he had an episode where he bent to pickle cutter something and when he stood up he passed out briefly. Today he was at rheumatology office for routine followup and he was noted to have a low heart rate in the 40s and that therefore sent to the emergency room to be evaluated. His blood pressure while in the emergency room has been normal his heart rate was as low as 43 but is much better now presently a 58 blood pressure is 121/83. Report no dizziness at this point no shortness of breath no dizziness no chest pain. He takes lisinopril and metoprolol for blood pressure. Creatinine is 1.69 which is above his baseline Review of Systems Review of Systems: Gen: no fever Resp: no sob, no cough CV: no chest, no RAMIREZ, no leg edema GI: No n/v, no abd pain Neuro: No confusion, no dizziness at the present time. 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 Rotator cuff arthropathy of right shoulder Seronegative rheumatoid arthritis Family History Mother Diabetes Maternal Grandfather Gout Social History Household Members: Spouse and Children Housing: House Alcohol intake: current Alcohol intake frequency: holidays/special occasions only Alcohol type: beer and hard liquor Patient Tobacco Use Status: Never used Tobacco Tobacco use type: Cigar Years Smoked: 3 years e-Cigarette/Vaping Use: Never Used Second Hand Smoke Exposure: No Use of substances other than those prescribed or required for medical reasons: No Advance Directives: No Advance Directives Information Provided: No service: No Current occupational status: employed Current occupation: [employer] Current occupational exposures/hazards: No Cognitive needs: No Hearing needs: No Vision needs: No Meds Allergies Allergy/AdvReac Type Severity Reaction Status Date / Time codeine [CODEINE] Allergy Mild HIVES, Verified 07/08/21 15:34 vomiting ibuprofen [IBUPROFEN] Allergy Unknown HIVES Verified 07/08/21 15:34 Bee stings Allergy Unknown Swelling Uncoded 06/30/21 14:26 Active Medications: Current Medications Pharmacy Consult (Consult Rx Perform Med Rec) 1 each MISCELLANE ONCE PRN PRN Reason: Consult order Home Medications Medication Instructions Recorded Confirmed Last Taken Type colchicine 0.6 mg capsule 0.6 mg PO DAILY PRN 07/30/20 06/30/21 Unknown History Physical Exam Vital Signs and Narrative: Vital Signs: Last Vital Signs Temp 98.4 F 07/27/21 11:46 Pulse 58 07/27/21 12:46 Resp 18 07/27/21 12:46 BP 121/83 07/27/21 12:46 Pulse Ox 97 07/27/21 12:46 BMI result Body Mass Index 33.2 Const: Other: Constitutional: Alert, in no distress, overweight. Mental Status: Oriented to person, place and time. Eyes: Pupils are equal, round and reactive to light. Ear, Nose and Throat: Oropharynx clear, mucous membranes moist. Ears and nose without eformities. T Respiratory: Clear to auscultation. No wheezing, rales or rhonchi. Cardiovascular: S1 S2 regular. No murmurs, rubs or gallops. Gastrointestinal: Abdomen soft, non-tender, non-distended. Normal bowel sounds.? Neurologic: Cranial nerves II-XII grossly intact. No focal neurological deficits. Moves all extremities spontaneously.? Skin: No rashes or lesions.? Musculoskeletal: No cyanosis or clubbing. Psychiatric: Normal mood and affect? Results Labs CBC and Chem 7: 07/27/21 11:15 07/27/21 11:15 Labs: Laboratory Results - last 24 hr 07/27/21 07/27/21 07/27/21 11:15 11:15 11:15 MCV 89.3 MCH 29.5 MCHC 33.0 RDW 14.0 Plt Count 314 MPV 9.3 L Immature Gran % (Auto) 0.2 Neut % (Auto) 60.0 Lymph % (Auto) 30.1 [place] % (Auto) 6.9 Eos % (Auto) 2.1 Baso % (Auto) 0.7 Lymph # (Auto) 2.6 [place] # (Auto) 0.6 Eos # (Auto) 0.2 Baso # (Auto) 0.1 Abs Immat Gran (auto) 0.02 Absolute Neuts (auto) 5.2 Absolute Nucleated RBC 0.000 Nucleated RBC % (auto) 0.0 Anion Gap 14 Estim Creat Clear Calc 74.1 Estimated GFR 45 Random Glucose 115 Calcium 9.5 Troponin I High Sens < 3.5 B-Natriuretic Peptide 156 H COVID-19 (TE) COVID-19 Clin Com 07/27/21 12:21 MCV MCH MCHC RDW Plt Count MPV Immature Gran % (Auto) Neut % (Auto) Lymph % (Auto) [place] % (Auto) Eos % (Auto) Baso % (Auto) Lymph # (Auto) [place] # (Auto) Eos # (Auto) Baso # (Auto) Abs Immat Gran (auto) Absolute Neuts (auto) Absolute Nucleated RBC Nucleated RBC % (auto) Anion Gap Estim Creat Clear Calc Estimated GFR Random Glucose Calcium Troponin I High Sens B-Natriuretic Peptide COVID-19 (TE) Negative COVID-19 Clin Com See Note Imaging Radiologist's Impressions: Impressions Chest X-Ray 07/27/21 11:40 IMPRESSION: No evidence for acute disease in the chest. Assessment and Plan (1) Acute kidney injury: Status: Acute (2) Syncope: Status: Acute Plan 51-year-old male with hypertension for which he takes lisinopril and metoprolol, history of seronegative rheumatoid arthritis presented to the hospital with episode of syncope and noted to have a mild bradycardia and SOFY. I do not signed the bradycardia with a heart rate in the 40s is responsible for his syncope, he may well have an episode of orthostatic hypotension and his renal failure is due to pre renal azotemia. Syncope-- likely due to orthostatic hypotension. Hold BP meds. Hydrate. Check orthostatic hypertension. Cardiac monitoring. SOFY-- likely due to prerenal azotemia, and is expected to improved upon hydration. Repeat lab tomorrow. Sinus bradycardia-- hold metoprolol today and probably restart tomorrow at a lower dose Serum negative rheumatoid arthritis --continue home medication. History of gout--continue allopurinol and colchicine. Hyperlipidemia--continue Lipitor. low risk for DVT. Quality Stroke Does the patient have a stroke diagnosis?: No VTE Prior VTE?: No VTE Risk Level:: Medical - low VTE Device Contraindication: Treatment Not Indicated VTE Drug Contraindication: Treatment Not Indicated
[2021-07-27] MEDS: 0.9 % Sodium Chloride 1,000 ML 125 ML IVCONT ×2 (13:16→20:45)
--- NOTE | 2021-07-27 13:29 | PHA.MEDREC ---
Pharmacy Consult ? Medication Reconciliation Pharmacy has completed the medication reconciliation. Patient finished prednisone course of monday. There are no remarkable issues for provider's attention. Cayla Lawson, PharmD
[2021-07-27 14:36] LABS: Anion Gap 14 (12-20); Blood Urea Nitrogen 28 mg/dL (9-16); Calcium 9.1 mg/dL (8.4-10.2); Carbon Dioxide 27 mmol/L (22-29); Chloride 99 mmol/L (96-108); Creatinine Clr Calc Pharmacy 80.5; Estimated Glomerular Filt Rate 49; Glucose Random 123 mg/dL (60-115); Potassium 4.6 mmol/L (3.3-5.1); Sodium 135 mmol/L (135-145)
--- NOTE | 2021-07-27 15:42 | PC.NURSE ---
Pt reports feeling better. hAs been sleeping. i think it was the fluids . has dropped to mid 40's for HR on monitor but remains asymptomatic. reports ambulating to BR w/o dizziness. awaits admission on floor.
--- NOTE | 2021-07-27 18:48 | MHC.CM.PN ---
NATHAN 07/27. No HCP. Declines. No vaccinations for Covid 19. Lives with . No DME/services. D/C plan is home without services. to provide transportation home.
--- NOTE | 2021-07-27 19:02 | PC.NURSE ---
Addendum entered by Shelly Kang 07/27/21 21:26: report given to CHERRY Beverly Addendum entered by Shelly Kang 07/27/21 19:50: pt is alet and oriented. resting in bed. no signs of acute distress notice. breathing equally unlabored. pt denies any chest pain, sob, or lightheadedness. t on continuos cardiac monitoring Original Note: report received from CHERRY Llanos
[2021-07-27] MEDS: Metoprolol Succinate ER 25 MG TAB.ER.24H PO (20:49)
[2021-07-27] MEDS: lisinopriL 20 MG TABLET PO (20:49)
[2021-07-27] MEDS: allopurinoL 300 MG TABLET PO (20:49)
[2021-07-27] MEDS: Atorvastatin Calcium 10 MG TABLET PO (20:49)
[2021-07-27] MEDS: Folic Acid 1 MG TABLET PO (20:49)
[2021-07-27] MEDS: Sertraline HCL 25 MG TABLET PO (20:49)
[2021-07-27] MEDS: 0.9 % Sodium Chloride Flush 3 ML SYRINGE IVFLUSH (22:25)
[2021-07-28] VITALS: BP 122/80; PULSE 58; RESP 18; TEMP 36.6; O2SAT 97
[2021-07-28 04:00] VITALS: BP 121/84; PULSE 56; RESP 18; TEMP 36.6; O2SAT 97
[2021-07-28] MEDS: 0.9 % Sodium Chloride 1,000 ML 125 ML IVCONT (04:49)
[2021-07-28 07:05] VITALS: BP 112/79; PULSE 51
[2021-07-28 07:32] VITALS: BP 112/79; PULSE 51; RESP 18; TEMP 36.8; O2SAT 98
[2021-07-28 08:25] VITALS: BP 103/67; BP 97/66; PULSE 58; PULSE 64
[2021-07-28] MEDS: traMADoL HCL 50 MG TABLET PO (10:13)
[2021-07-28 11:18] VITALS: BP 104/64; PULSE 55; RESP 18; TEMP 36.1; O2SAT 97
--- NOTE | 2021-07-28 11:20 | MHC.CM.PN ---
per rounds pt to be dcd today no servceis are expected to be needed
[2021-07-28 12:14] LABS: Anion Gap 9 (12-20); Blood Urea Nitrogen 21 mg/dL (9-16); Carbon Dioxide 30 mmol/L (22-29); Chloride 108 mmol/L (96-108); Creatinine Clr Calc Pharmacy 101.3; Estimated Glomerular Filt Rate > 60; Glucose Random 93 mg/dL (60-115); Potassium 4.9 mmol/L (3.3-5.1); Sodium 142 mmol/L (135-145)
--- NOTE | 2021-07-28 12:34 | PM.DS ---
DS: Providers Provider Date of Service: 07/28/21 Date of admission: 07/27/21 12:57 Primary care physician: Naveed Webster [facility] DS: Diagnosis Discharge Diagnosis (1) Acute kidney injury: Status: Resolved (2) Syncope: Status: Resolved DS: Summary Hospital Course Hospital Course: Chief Complaint: ? Near-syncope ?51-year-old male with a steroid negative rheumatoid arthritis, hypertension who presented with a near syncopal episode.? Patient reports that yesterday he had an episode where he bent to meat pickler something and when he stood up he passed out briefly.? Today he was at rheumatology office for routine followup and he was noted to have a low heart rate in the 40s and that therefore sent to the emergency room to be evaluated.? His blood pressure while in the emergency room has been normal his heart rate was as low as 43 but is much better now presently a 58 blood pressure is 121/83.? Report no dizziness at this point no shortness of breath no dizziness no chest pain. ? He takes lisinopril and metoprolol for blood pressure.? Creatinine is 1.69 which is above his baseline Hospital course: He presented with dizziness and syncope upon standing and found to have pulse and low blood pressure and acute renal failue. His presentation was consistent with orthostatic hypotension due BP meds (Lisnopriland Motroprolol)--both of them discontinued with BP still normal, repeat orthostatic is better. There was no arrythmia and aslo encouraged to drink plenty of fluid Time Spent with Patient Time attestation: Total time spent providing and/or coordinating discharge services: Discharge coordination time: Greater than 30 minutes Quality: Safe Use of Opioids Does Pt have an Active Cancer Diagnosis on the Problem List?: No Quality: Stroke Does the patient have a stroke diagnosis?: No Physical Exam Vital Signs: Vital Signs: Last Vital Signs Temp 97.0 F 07/28/21 11:18 Pulse 55 07/28/21 11:18 Resp 18 07/28/21 11:18 BP 104/64 07/28/21 11:18 Pulse Ox 97 07/28/21 11:18 BMI result Body Mass Index 33.2 General: AO X 3, no acute distress Resp: CTA bilateral CVS: S1,S2,RRR GI: +BS, NT, no distention Skin: No rash Neuro: motor grossly intact Psych: appropriate affect DS: Data Data Completed and Pending Labs on day of discharge: Laboratory Results - last 24 hr 07/27/21 07/27/21 07/28/21 12:21 13:59 11:40 Sodium 135 142 Potassium 4.6 4.9 Chloride 99 108 Carbon Dioxide 27 30 H Anion Gap 14 9 L BUN 28 H 21 H Creatinine 1.51 H 1.20 Estim Creat Clear Calc 80.5 101.3 Estimated GFR 49 > 60 Random Glucose 123 H 93 Calcium 9.1 9.0 COVID-19 (TE) Negative COVID-19 Clin Com See Note Discharge Plan Discharge Anticipated Discharge Date/Time: 07/28/21 11:17 Patient Disposition: Home, Self-Care Discharge Diagnosis: Orthostatic hypertension, syncope, SOFY. Referrals: Naveed Webster, CIVIL LITIGATION ATTORNEY- [Primary Care Provider] - 1 Week Discharge Medications: Continued tramadol 50 mg tablet 50 mg PO TID PRN (Reason: pain) 30 Days Qty: 90 5RF sertraline 25 mg tablet 25 mg PO BEDTIME folic acid 1 mg tablet 1 mg PO BEDTIME allopurinol 300 mg tablet 300 mg PO BEDTIME colchicine 0.6 mg capsule 0.6 mg PO DAILY PRN (Reason: Gout) Discontinued lisinopril 20 mg tablet 20 mg PO BEDTIME metoprolol succinate 25 mg tablet extended release 24 hr 25 mg PO BEDTIME No Action methotrexate sodium 2.5 mg tablet 10 mg PO QWEEK Qty: 16 1RF atorvastatin 10 mg tablet 10 mg PO BEDTIME 90 Days Qty: 90 1RF prednisone 10 mg tablet 10 mg PO .COMPLEX Qty: 18 0RF Rx Instructions: 3 tab daily for 3 days, 2 tab daily for 3 days, 1 tab daily for 3 days Discharge Orders: Discharge Order (Routine); Ordered 07/28/21 Ordered By: Emanuel Delgadillo Activity on Discharge: As tolerated Stand Alone Forms: Patient Portal Discharge page Care Plan Goals: Prevent orthostatic hypertension and syncope. Health Concerns: Orthostatic hypotension related syncope, chronic kidney disease, hypertension. Plan of Treatment: Do not take Metoprolol or lisinopril for blood pressure at this time. , drink plenty of fluid. Make appointment to go see you Assessment: as above Discharge Date/Time: 07/28/21 14:23
== END 2021-07-28 14:23 | disposition home or self-care (01) ==
LOC: HO.ED 12:25 → HO.EDOVER 13:19 → HO.IMC 21:02
PROVIDERS: Admitting Provider Internal Medicine; Emergency Provider Emergency Medicine; PCP Nurse Practitioner Family; Visit Provider Internal Medicine
DX: N17.9 Acute kidney failure, unspecified (principal); R55 Syncope and collapse; R00.1 Bradycardia, unspecified; R42 Dizziness and giddiness; I10 Essential (primary) hypertension; E78.5 Hyperlipidemia, unspecified; M10.9 Gout, unspecified; M06.00 Rheumatoid arthritis without rheumatoid factor, unspecified site; D64.9 Anemia, unspecified; R63.1 Polydipsia; R10.13 Epigastric pain; R07.9 Chest pain, unspecified; E66.9 Obesity, unspecified; F17.290 Nicotine dependence, other tobacco product, uncomplicated; Z68.33 Body mass index [BMI] 33.0-33.9, adult; Z20.822 Contact with and (suspected) exposure to COVID-19; Z88.8 Allergy status to other drugs, medicaments and biological substances; Z88.6 Allergy status to analgesic agent; Z91.030 Bee allergy status; Z79.899 Other long term (current) drug therapy
CPT/HCPCS: 36415; 71045; 80048; 83880; 84484; 85025; 87635; 93005; 96360; 96361; 99219; 99285

== ENCOUNTER 2021-08-09 15:20 | Outpatient (REF) | payer OTHER, SELFPAY ==
[2021-08-09 16:33] LABS: MANUAL DIFF FLAG NO
[2021-08-09 16:41] LABS: Basophils Absolute Auto 0.1 X10*3/uL (0.0-0.2); Basophils Percent Auto 1.2 % (0-2); Eosinophils Absolute Auto 0.3 X10*3/uL (0.0-0.4); Eosinophils Percent Auto 5.3 % (0-4); Hematocrit 33.5 % (42.0-52.0); Hemoglobin 10.6 g/dl (14.0-18.0); Imm Gran Abs Auto 0.02 X10*3/uL (0.00-0.03); Imm Gran Pct Auto 0.4 % (0.0-0.4); Lymphocytes Absolute Auto 1.8 X10*3/uL (1.2-4.9); Mean Corpuscular HGB Conc 31.6 g/dl (31.0-36.0); Mean Corpuscular Hemoglobin 29.5 pg (27.0-33.0); Mean Corpuscular Volume 93.3 fL (80.0-98.0); Mean Platelet Volume 9.6 fL (9.4-12.4); Monocytes Absolute Auto 0.4 X10*3/uL (0.1-1.2); Monocytes Percent Auto 7.3 % (2-11); Neutrophils Absolute Auto 2.5 x10*3/uL (2.0-8.3); Neutrophils Percent Auto 49.8 % (45-73); Platelet Count 282 X10*3/uL (160-400); Red Blood Count 3.59 X10*6/uL (4.60-5.80); Red Cell Distribution Width 14.2 % (11.0-16.0); White Blood Count 5.1 X10*3/uL (4.8-10.8)
[2021-08-09 16:57] LABS: Alanine Aminotransferase 26 U/L (0-40); Albumin Level 4.1 g/dL (3.5-5.0); Alkaline Phosphatase 79 U/L (39-117); Anion Gap 12 (12-20); Aspartate Amino Transferase 21 U/L (5-37); Bilirubin Total 0.3 mg/dL (0.0-1.0); Blood Urea Nitrogen 14 mg/dL (9-16); Calcium 9.3 mg/dL (8.4-10.2); Carbon Dioxide 31 mmol/L (22-29); Chloride 102 mmol/L (96-108); Estimated Glomerular Filt Rate > 60; Glucose Random 120 mg/dL (60-115); Potassium 4.5 mmol/L (3.3-5.1); Sodium 140 mmol/L (135-145); Total Protein 7.2 g/dL (6.5-8.0)
[2021-08-09 17:17] LABS: TSH reflex Free T4 1.07 uIU/mL (0.32-4.0)
[2021-08-09 17:29] LABS: Folate 11.7 ng/mL (> or = 4.0); Vitamin B12 846 pg/mL (200-900)
== END 2021-08-09 15:21 | disposition home or self-care (01) ==
LOC: HO.HMGCLDS 15:20
PROVIDERS: PCP Nurse Practitioner Family; Visit Provider Nurse Practitioner Family
DX: N17.9 Acute kidney failure, unspecified (principal); R53.83 Other fatigue
CPT/HCPCS: 36415; 80053; 82607; 82746; 84443; 85025

== ENCOUNTER → 2021-08-12 10:58 | Outpatient (BNVA) | payer OTHER, SELFPAY | PROVIDERS: PCP Nurse Practitioner Family; Visit Provider Nurse Practitioner Family | DX: M06.00 Rheumatoid arthritis without rheumatoid factor, unspecified site (principal); M1A.00X0 Idiopathic chronic gout, unspecified site, without tophus (tophi); D64.9 Anemia, unspecified | CPT/HCPCS: 99212 ==

== ENCOUNTER 2021-08-30 08:23 | Outpatient (REF) | payer OTHER, SELFPAY ==
[2021-08-30 13:04] LABS: C Reactive Protein 0.53 mg/dL (< or = 0.50); Uric Acid 5.1 mg/dL (3.4-7.0)
[2021-08-30 14:31] LABS: Erythrocyte Sedimentation Rate 23 MM/HR (0-15)
[2021-09-01 21:02] LABS: TS Negative Control Passed; TS Panel A 0; TS Panel B 1; TS Positive Control Passed; TSpotTB Negative (Negative)
== END 2021-08-30 08:24 | disposition home or self-care (01) ==
LOC: HO.HMGCLDS 08:23
PROVIDERS: Absent Provider Nurse Practitioner Family; PCP Nurse Practitioner Family; Referring Provider Internal Medicine; Visit Provider Nurse Practitioner Family
DX: M1A.00X0 Idiopathic chronic gout, unspecified site, without tophus (tophi) (principal); M06.00 Rheumatoid arthritis without rheumatoid factor, unspecified site; Z11.1 Encounter for screening for respiratory tuberculosis
CPT/HCPCS: 36415; 84550; 85652; 86140; 86481

== ENCOUNTER 2021-11-09 13:39 | Outpatient (REF) | payer OTHER, SELFPAY ==
[2021-11-09 16:59] LABS: MANUAL DIFF FLAG NO
[2021-11-09 17:24] LABS: Basophils Absolute Auto 0.1 X10*3/uL (0.0-0.2); Basophils Percent Auto 1.2 % (0-2); Eosinophils Absolute Auto 0.2 X10*3/uL (0.0-0.4); Eosinophils Percent Auto 2.3 % (0-4); Hemoglobin 13.7 g/dl (14.0-18.0); Imm Gran Abs Auto 0.02 X10*3/uL (0.00-0.03); Imm Gran Pct Auto 0.3 % (0.0-0.4); Lymphocytes Absolute Auto 1.7 X10*3/uL (1.2-4.9); Lymphocytes Percent Auto 22.3 % (20-40); Mean Corpuscular HGB Conc 33.4 g/dl (31.0-36.0); Mean Corpuscular Hemoglobin 29.5 pg (27.0-33.0); Mean Corpuscular Volume 88.4 fL (80.0-98.0); Mean Platelet Volume 10.1 fL (9.4-12.4); Monocytes Absolute Auto 0.4 X10*3/uL (0.1-1.2); Monocytes Percent Auto 5.9 % (2-11); Neutrophils Absolute Auto 5.1 x10*3/uL (2.0-8.3); Platelet Count 274 X10*3/uL (160-400); Red Blood Count 4.64 X10*6/uL (4.60-5.80); White Blood Count 7.5 X10*3/uL (4.8-10.8)
[2021-11-09 17:41] LABS: Uric Acid 5.4 mg/dL (3.4-7.0)
[2021-11-09 17:45] LABS: Alanine Aminotransferase 50 U/L (0-40); Albumin Level 4.6 g/dL (3.5-5.0); Alkaline Phosphatase 88 U/L (39-117); Anion Gap 16 (12-20); Aspartate Amino Transferase 34 U/L (5-37); Bilirubin Total 0.6 mg/dL (0.0-1.0); Blood Urea Nitrogen 15 mg/dL (9-16); Calcium 9.8 mg/dL (8.4-10.2); Carbon Dioxide 28 mmol/L (22-29); Chloride 102 mmol/L (96-108); Estimated Glomerular Filt Rate > 60; Glucose Random 97 mg/dL (60-115); Potassium 4.1 mmol/L (3.3-5.1); Sodium 142 mmol/L (135-145); Total Protein 7.9 g/dL (6.5-8.0)
[2021-11-09 18:29] LABS: Erythrocyte Sedimentation Rate 20 MM/HR (0-15)
== END 2021-11-09 13:40 | disposition home or self-care (01) ==
LOC: HO.HMGCLDS 13:39
PROVIDERS: Absent Provider Internal Medicine Rheumatology; PCP Nurse Practitioner Family; Visit Provider Nurse Practitioner Family
DX: I10 Essential (primary) hypertension (principal); M06.00 Rheumatoid arthritis without rheumatoid factor, unspecified site; M1A.00X0 Idiopathic chronic gout, unspecified site, without tophus (tophi); Z79.899 Other long term (current) drug therapy
CPT/HCPCS: 36415; 80053; 84550; 85025; 85652; 86140

== ENCOUNTER 2021-12-28 11:47 | Outpatient (REF) | payer OTHER, SELFPAY ==
[2021-12-28 13:59] LABS: MANUAL DIFF FLAG NO
[2021-12-28 14:17] LABS: Basophils Absolute Auto 0.1 X10*3/uL (0.0-0.2); Basophils Percent Auto 1.5 % (0-2); Eosinophils Absolute Auto 0.3 X10*3/uL (0.0-0.4); Eosinophils Percent Auto 6.3 % (0-4); Hematocrit 32.6 % (42.0-52.0); Hemoglobin 10.4 g/dl (14.0-18.0); Imm Gran Abs Auto 0.02 X10*3/uL (0.00-0.03); Imm Gran Pct Auto 0.4 % (0.0-0.4); Lymphocytes Absolute Auto 1.2 X10*3/uL (1.2-4.9); Lymphocytes Percent Auto 25.7 % (20-40); Mean Corpuscular HGB Conc 31.9 g/dl (31.0-36.0); Mean Corpuscular Hemoglobin 29.3 pg (27.0-33.0); Mean Corpuscular Volume 91.8 fL (80.0-98.0); Mean Platelet Volume 10.4 fL (9.4-12.4); Monocytes Absolute Auto 0.3 X10*3/uL (0.1-1.2); Monocytes Percent Auto 6.5 % (2-11); Neutrophils Absolute Auto 2.7 x10*3/uL (2.0-8.3); Neutrophils Percent Auto 59.6 % (45-73); Platelet Count 265 X10*3/uL (160-400); Red Blood Count 3.55 X10*6/uL (4.60-5.80); Red Cell Distribution Width 13.3 % (11.0-16.0); White Blood Count 4.6 X10*3/uL (4.8-10.8)
[2021-12-28 14:19] LABS: Alanine Aminotransferase 14 U/L (0-40); Alkaline Phosphatase 85 U/L (39-117); Anion Gap 12 (12-20); Aspartate Amino Transferase 17 U/L (5-37); Bilirubin Total 0.3 mg/dL (0.0-1.0); Blood Urea Nitrogen 17 mg/dL (9-16); Carbon Dioxide 30 mmol/L (22-29); Chloride 103 mmol/L (96-108); Estimated Glomerular Filt Rate > 60; Glucose Random 103 mg/dL (60-115); Potassium 4.3 mmol/L (3.3-5.1); Sodium 141 mmol/L (135-145); Total Protein 6.9 g/dL (6.5-8.0)
[2021-12-28 14:20] LABS: Alanine Aminotransferase 13 U/L (0-40); Aspartate Amino Transferase 16 U/L (5-37)
[2021-12-28 14:21] LABS: B Type Natriuretic Peptide 85 pg/mL (<100); Troponin-I High Sensitivity < 3.5 ng/L (<3.5-35.0)
== END 2021-12-28 11:48 | disposition home or self-care (01) ==
LOC: HO.HMGCLDS 11:47
PROVIDERS: Emergency Medicine; Absent Provider Nurse Practitioner Family; PCP Nurse Practitioner Family; Visit Provider Internal Medicine Rheumatology
DX: R06.02 Shortness of breath (principal); R60.0 Localized edema; R10.9 Unspecified abdominal pain; R53.1 Weakness; M06.00 Rheumatoid arthritis without rheumatoid factor, unspecified site; M1A.00X0 Idiopathic chronic gout, unspecified site, without tophus (tophi); R07.81 Pleurodynia; Z79.899 Other long term (current) drug therapy
CPT/HCPCS: 36415; 80053; 83880; 84450; 84460; 84484; 85025

== ENCOUNTER → 2022-01-20 14:01 | Outpatient (BNVA) | payer OTHER, SELFPAY | PROVIDERS: PCP Nurse Practitioner Family; Visit Provider Nurse Practitioner Family | DX: M06.00 Rheumatoid arthritis without rheumatoid factor, unspecified site (principal); M1A.00X0 Idiopathic chronic gout, unspecified site, without tophus (tophi); M79.89 Other specified soft tissue disorders; D64.9 Anemia, unspecified | CPT/HCPCS: 99212 ==

== ENCOUNTER 2022-02-01 09:07 | Outpatient (REF) | payer OTHER, SELFPAY ==
--- NOTE | ~2022-02-01 | XR_ITS ---
EXAMINATION: XR SHOULDER, RIGHT CLINICAL INFORMATION: Right shoulder pain COMPARISON: Radiographs right shoulder 05/12/2017, MRI right shoulder 08/03/2017 TECHNIQUE: Right shoulder is imaged in 4 views. FINDINGS: No fracture, dislocation, destructive process. The glenohumeral joint appears normal. There is no visible rotator cuff calcifications. There are prominent osteoarthritic changes acromioclavicular joint. No acromioclavicular separation or erosive changes. XR/XR shoulder RT min 2V IMPRESSION: 1. Prominent osteoarthritic changes acromioclavicular joint. 2. No visible rotator cuff calcifications.
[2022-02-01 11:32] LABS: MANUAL DIFF FLAG NO
[2022-02-01 11:52] LABS: Basophils Absolute Auto 0.1 X10*3/uL (0.0-0.2); Basophils Percent Auto 1.3 % (0-2); Eosinophils Absolute Auto 0.4 X10*3/uL (0.0-0.4); Hematocrit 35.2 % (42.0-52.0); Imm Gran Abs Auto 0.01 X10*3/uL (0.00-0.03); Imm Gran Pct Auto 0.2 % (0.0-0.4); Lymphocytes Absolute Auto 1.2 X10*3/uL (1.2-4.9); Mean Corpuscular HGB Conc 31.3 g/dl (31.0-36.0); Mean Corpuscular Hemoglobin 28.5 pg (27.0-33.0); Mean Corpuscular Volume 91.2 fL (80.0-98.0); Mean Platelet Volume 10.3 fL (9.4-12.4); Monocytes Absolute Auto 0.4 X10*3/uL (0.1-1.2); Monocytes Percent Auto 8.5 % (2-11); Neutrophils Absolute Auto 2.7 x10*3/uL (2.0-8.3); Platelet Count 239 X10*3/uL (160-400); Red Blood Count 3.86 X10*6/uL (4.60-5.80); White Blood Count 4.8 X10*3/uL (4.8-10.8)
[2022-02-01 12:02] LABS: Appearance Urine Hazy; Color Urine Yellow; Glucose Urine UA Negative (Negative); Leukocyte Esterase Urine Negative (Negative); Nitrite Urine Negative (Negative); Urine Blood Negative (Negative); Urine Ketones Negative (Negative); Urine Protein Negative (Neg-Trace)
[2022-02-01 12:16] LABS: Alanine Aminotransferase 16 U/L (0-40); Aspartate Amino Transferase 15 U/L (5-37); Estimated Glomerular Filt Rate > 60; TSH reflex Free T4 0.88 uIU/mL (0.32-4.0)
[2022-02-01 12:22] LABS: Alanine Aminotransferase 17 U/L (0-40); Albumin Level 4.2 g/dL (3.5-5.0); Alkaline Phosphatase 95 U/L (39-117); Anion Gap 14 (12-20); Aspartate Amino Transferase 17 U/L (5-37); Bilirubin Total 0.2 mg/dL (0.0-1.0); Blood Urea Nitrogen 18 mg/dL (9-16); Calcium 8.9 mg/dL (8.4-10.2); Carbon Dioxide 31 mmol/L (22-29); Chloride 100 mmol/L (96-108); Estimated Glomerular Filt Rate > 60; Glucose Random 100 mg/dL (60-115); Potassium 4.4 mmol/L (3.3-5.1); Sodium 141 mmol/L (135-145); Total Protein 7.3 g/dL (6.5-8.0); Uric Acid 7.5 mg/dL (3.4-7.0)
[2022-02-01 12:51] LABS: Erythrocyte Sedimentation Rate 23 MM/HR (0-15)
== END 2022-02-01 09:08 | disposition home or self-care (01) ==
LOC: HO.HMGCX 09:07
PROVIDERS: PCP Nurse Practitioner Family; Visit Provider Nurse Practitioner Family
DX: M25.511 Pain in right shoulder (principal); M06.00 Rheumatoid arthritis without rheumatoid factor, unspecified site; E86.0 Dehydration; N17.9 Acute kidney failure, unspecified; Z79.899 Other long term (current) drug therapy
CPT/HCPCS: 36415; 73030; 80053; 81003; 82565; 84443; 84450; 84460; 84550; 85025; 85652; 86140

== ENCOUNTER → 2022-03-18 10:29 | Outpatient (BNVA) | payer OTHER, SELFPAY | PROVIDERS: PCP Nurse Practitioner Family; Visit Provider Orthopaedic Surgery | DX: M75.41 Impingement syndrome of right shoulder (principal) | CPT/HCPCS: 20610; 99212; J1100 ==

== ENCOUNTER 2023-09-01 09:43 | Outpatient (REF) | payer OTHER, SELFPAY ==
[2023-09-01 13:26] LABS: MANUAL DIFF FLAG NO
[2023-09-01 13:47] LABS: Basophils Absolute Auto 0.1 X10*3/uL (0.0-0.2); Basophils Percent Auto 1.8 % (0-2); Eosinophils Absolute Auto 0.2 X10*3/uL (0.0-0.4); Eosinophils Percent Auto 5.1 % (0-4); Hematocrit 33.8 % (42.0-52.0); Imm Gran Abs Auto 0.01 X10*3/uL (0.00-0.03); Imm Gran Pct Auto 0.2 % (0.0-0.4); Lymphocytes Absolute Auto 1.4 X10*3/uL (1.2-4.9); Lymphocytes Percent Auto 31.2 % (20-40); Mean Corpuscular HGB Conc 32.5 g/dl (31.0-36.0); Mean Corpuscular Hemoglobin 28.6 pg (27.0-33.0); Mean Platelet Volume 10.4 fL (9.4-12.4); Monocytes Absolute Auto 0.4 X10*3/uL (0.1-1.2); Monocytes Percent Auto 9.5 % (2-11); Neutrophils Absolute Auto 2.4 x10*3/uL (2.0-8.3); Neutrophils Percent Auto 52.2 % (45-73); Platelet Count 200 X10*3/uL (160-400); Red Blood Count 3.84 X10*6/uL (4.60-5.80); Red Cell Distribution Width 13.9 % (11.0-16.0); White Blood Count 4.5 X10*3/uL (4.8-10.8)
[2023-09-01 14:38] LABS: Alanine Aminotransferase 18 U/L (0-40); Albumin Level 4.2 g/dL (3.5-5.0); Alkaline Phosphatase 77 U/L (39-117); Anion Gap 14 (12-20); Aspartate Amino Transferase 20 U/L (5-37); Bilirubin Total 0.6 mg/dL (0.0-1.0); Blood Urea Nitrogen 17 mg/dL (9-16); Calcium 9.3 mg/dL (8.4-10.2); Carbon Dioxide 28 mmol/L (22-29); Chloride 103 mmol/L (96-108); Cholesterol 146 mg/dL (<200); Estimated Glomerular Filt Rate > 60; Glucose Fasting 84 mg/dL (60-99); HDL Cholesterol 37 mg/dL (>40); LDL Cholesterol Calculated 80 mg/dL (<100); Potassium 3.9 mmol/L (3.3-5.1); Sodium 141 mmol/L (135-145); TSH reflex Free T4 1.62 uIU/mL (0.32-4.0); Total Protein 7.2 g/dL (6.5-8.0); Triglycerides 148 mg/dL (<150)
[2023-09-01 14:40] LABS: Prostate Specific Antigen Scr 0.38 ng/mL (<0.05-4.0)
== END 2023-09-01 09:44 | disposition home or self-care (01) ==
LOC: HO.HMGCLDS 09:43
PROVIDERS: PCP Nurse Practitioner Family; Visit Provider Nurse Practitioner Family
DX: Z00.00 Encounter for general adult medical examination without abnormal findings (principal); Z12.5 Encounter for screening for malignant neoplasm of prostate
CPT/HCPCS: 36415; 80053; 80061; 84153; 84443; 85025

== ENCOUNTER 2023-09-05 16:01 | Outpatient (AMB) | payer OTHER, SELFPAY ==
--- NOTE | 2023-09-05 16:03 | MHC.PC.OV ---
Vital Signs 09/05/23 16:05 09/05/23 16:17 Height 6 ft 2 in Weight 239 lb BMI 30.7 BP 122/90 H 122/86 Blood Pressure Location Rt brachial Rt brachial Position Sitting Sitting Pulse 76 Pulse Source Pulse Oximeter Pulse Oximetry (%) 98 Oxygen Delivery Method Room Air Intake Visit Reasons: Annual PE Intake Note: Patient here for physical exam. Allergies codeine [CODEINE] Allergy (Mild, Verified 09/05/23 16:20) HIVES, vomiting ibuprofen [IBUPROFEN] Allergy (Unknown, Verified 09/05/23 16:20) HIVES Bee stings Allergy (Unknown, Uncoded 09/05/23 16:20) Swelling Medication List - Last Reconciled 09/05/23 by REED Scott allopurinol 300 mg PO DAILY atorvastatin 10 mg PO BEDTIME 90 days colchicine 0.6 mg PO BID folic acid 1 mg PO DAILY methotrexate sodium 10 mg (4 x 2.5 mg) PO QWEEK metoprolol succinate ER 25 mg PO DAILY 30 days prednisone 3 tab daily for 3 days, 2 tab daily for 3 days, 1 tab daily for 3 days sertraline 25 mg PO BEDTIME 90 days tramadol 50 mg PO BID PRN 10 days triamcinolone acetonide 0.1% 1 appl topical BID Tobacco use date assessed: 09/05/23 Dental Screening Dental Screen Date: 09/05/23 Did you have a dental visit in the last 12 months?: No Did you have a dental problem in the last 6 months where you did not have access to dental care?: No Was dental information given to patient?: No HPI Annual PE HPI Details Pt is here for a PE. Labs were already performed. PSA is up to date. Due for colon screen, will order cologuard. Pt reports that his blood pressure at home is in the 120s/70s. 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 Gout Seronegative rheumatoid arthritis Family History Mother Diabetes Maternal Grandfather Gout Social History Household Members: Spouse and Children Housing: House Alcohol intake: current Alcohol intake frequency: holidays/special occasions only Alcohol type: beer and hard liquor Patient Tobacco Use Status: Never used Tobacco Tobacco use type: Cigar Years Smoked: 3 years e-Cigarette/Vaping Use: Never Used Second Hand Smoke Exposure: No service: No Current occupational status: employed Current occupation: [employer] Current occupational exposures/hazards: No Cognitive needs: No Hearing needs: No Vision needs: No Questionnaire PHQ-9 Over the last 2 weeks, how often have you been bothered by any of the following problems? 18492 - PHQ-9 Billing: Patient declined-do not bill Source: Developed by Drs. Alex Herrera, Lorena Swanson, Joss Boyd and colleagues, with an educational antonio from [employer]. Thrive Questionnaire Date Thrive assessed: 12/24/20 Currently or been in a relationship where the following occur: no concerns reported THRIVE Score: 0 AUDIT C Alcohol Use Questionnaire (AUDIT-C) 1. How often do you have a drink containing alcohol?: 2-4 times a month 2. How many drinks containing alcohol do you have on a typical day when you are drinking?: 1 or 2 3. How often do you have six or more drinks on one occasion?: Never Total Score: 2 Score Reviewed/Action Taken: No SLAVA-7 AMB Questionnaire SLAVA-7 Assessment Billing SLAVA-7 Assessment Tool: pt declined-do not bill Review of Systems Const Denies chills and Denies fever(s) Eyes Denies blurry vision ENT Denies vertigo, Denies dizziness and Denies sore throat Card Denies chest pain at rest, Denies chest pain with activity, Denies diaphoresis, Denies dyspnea and Denies dyspnea on exertion Resp Denies cough, Denies dyspnea, Denies dyspnea on exertion and Denies wheezing GI Denies abdominal pain, Denies melena, Denies hematochezia, Denies constipation, Denies diarrhea and Denies loose stools Denies hematuria Musc Denies numbness and Denies tingling Skin/Breast Denies lesions Neuro Denies vertigo, Denies dizziness, Denies numbness and Denies tingling Psych Denies anxiety, Denies depression, Denies homicidal ideation, Denies suicidal ideation and Denies other (substance abuse) Aller/Immun Denies wheezing Physical exam (Primary Care) Vital Signs: Last Vital Signs Pulse 76 09/05/23 16:05 BP 122/90 H 09/05/23 16:05 Pulse Ox 98 09/05/23 16:05 Oxygen Delivery Method Room Air 09/05/23 16:05 BMI result Body Mass Index 30.7 Tobacco/Smoking Status: Tobacco use Status Tobacco use date assessed 09/05/23 09/05/23 16:10 Patient Tobacco Use Status Never used Tobacco 09/05/23 16:04 Tobacco use type Cigar 09/05/23 16:04 e-Cigarette/Vaping Use Never Used 09/05/23 16:04 Thrive Assessment: Date of Thrive Assessment Date Thrive assessed 12/24/20 09/05/23 16:04 Currently or been in a relationship where the following occur: no concerns reported Const General: cooperative Nutritional Appearance: well nourished Orientation/consciousness: patient oriented x3 HENMT Head: Yes normal to inspection, Yes normocephalic and Yes atraumatic Ears: TM's normal bilaterally Eyes General: appearance normal, both eyes and all related structures Alignment and Position: alignment normal and position normal Neck Neck: Yes normal visual inspection and Yes no lymphadenopathy Thyroid: Thyroid normal Resp Effort & Inspection: normal respiratory effort Auscultation: clear to auscultation bilaterally Cardio Rate: regular rate Rhythm: regular rhythm Heart sounds: S1 normal heart sound present, S2 normal heart sound present and no murmurs GI Palpation (GI): Soft to palpation and nontender Auscultation: normal bowel sounds Other: refused exam Skin Other: small scabed lesions to posterior upper neck. no signs of infection noted Rashes: no rashes Neuro General: patient oriented x3, moves all extremities, no focal motor deficits and deep tendon reflexes 2+ bilaterally Romberg Test: Negative Psych Appearance: grossly normal Mental Status: mental status grossly normal Speech and movement: Normal speech and movement present Affect: normal affect Attitude: cooperative Thought process: Normal thought process present Thought content: Normal thought content present Insight: Good insight present (Psych) Judgement: Good judgement present (Psych) Assessment and Plan Assessment & Plan (1) Physical exam: Code(s): Z00.00 - Encounter for general adult medical examination without abnormal findings Plan The patient agreed to the use of a director medical writing for this encounter. Scribed for AWA Mckee- by Helena Perdomo, director medical writing, on 09/05/2023 at 16:25 EST. Orders: Referrals Cologuard Test Z12.11 - Encounter for screening for malignant neoplasm of colon, Z12.12 - Encounter for screening for malignant neoplasm of rectum Coding Level of Care Code Est Pt Prev Care 40-64y(48072) Diagnoses Physical exam Z00.00
[2023-09-05 16:05] VITALS: BP 122/90; PULSE 76; O2SAT 98; BMI 30.7
[2023-09-05 16:17] VITALS: BP 122/86
== END 2023-09-05 16:36 | disposition home or self-care (01) ==
PROVIDERS: PCP Nurse Practitioner Family; Visit Provider Nurse Practitioner Family
DX: Z00.00 Encounter for general adult medical examination without abnormal findings (principal)
CPT/HCPCS: 99396

== ENCOUNTER 2024-02-26 17:46 | Emergency (ER) | payer OTHER, SELFPAY ==
--- NOTE | ~2024-02-26 | XR_ITS ---
EXAMINATION: XR KNEE, RIGHT CLINICAL INFORMATION: Right knee pain COMPARISON: Right knee radiographs August 30, 2017 TECHNIQUE: Four views of the right knee. FINDINGS: No fracture. Alignment is anatomic. Joint spaces are maintained. No abnormal soft tissue calcification. Moderate joint effusion. XR/XR knee RT 4V IMPRESSION: Moderate joint effusion Electronically signed by: Ilan Nagy MD 02/26/2024 08:27 PM EST
[2024-02-26 17:51] VITALS: BP 156/103; PULSE 92; RESP 20; TEMP 36.9; O2SAT 99; BMI 31.5
--- NOTE | 2024-02-26 17:56 | ED.GENADULT ---
HPI - General Adult General Chief complaint: Extremity Injury, Lower Stated complaint: Gout? History of Present Illness HPI narrative: patient left before completion of treatment by ED provider. Related Data Home Medications ?Medication ?Instructions ?Recorded ?Confirmed colchicine 0.6 mg capsule 0.6 mg PO BID Gout 11/09/21 09/05/23 Previous Rx's ?Medication ?Instructions ?Recorded triamcinolone acetonide 0.1 % 1 appl topical BID #15 grams 12/28/21 topical cream allopurinol 300 mg tablet 300 mg PO DAILY #60 tabs 02/04/22 methotrexate sodium 2.5 mg tablet 10 mg (4 x 2.5 mg) PO QWEEK #16 02/16/22 tabs metoprolol succinate 25 mg 25 mg PO DAILY 30 days #30 tabs 02/17/22 tablet,extended release 24 hr tramadol 50 mg tablet 50 mg PO BID PRN pain 10 days #20 02/17/22 tabs folic acid 1 mg tablet 1 mg PO DAILY #90 tabs 05/13/22 prednisone 10 mg tablet 10 mg PO .COMPLEX #18 tabs 05/20/22 atorvastatin 10 mg tablet 10 mg PO BEDTIME 90 days #90 tabs 05/20/23 sertraline 25 mg tablet 25 mg PO BEDTIME 90 days #90 tabs 02/06/24 Allergies Allergy/AdvReac Type Severity Reaction Status Date / Time codeine [CODEINE] Allergy Mild HIVES, Verified 02/26/24 17:54 vomiting ibuprofen [IBUPROFEN] Allergy Unknown HIVES Verified 02/26/24 17:54 Bee stings Allergy Unknown Swelling Uncoded 09/05/23 16:20 PMFSH Past Medical History Medical History HLD (hyperlipidemia) Rotator cuff arthropathy of right shoulder Depression [facility] 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 Gout Seronegative rheumatoid arthritis Family History Family History Mother Diabetes Maternal Grandfather Gout Social History Social History Household Members: Spouse and Children Housing: House Alcohol intake: current Alcohol intake frequency: holidays/special occasions only Alcohol type: beer and hard liquor Patient Tobacco Use Status: Never used Tobacco Tobacco use type: Cigar Years Smoked: 3 years e-Cigarette/Vaping Use: Never Used Second Hand Smoke Exposure: No Advance Directives: No Advance Directives Information Provided: No Do you have a plan to hurt others: No Plan service: No Current occupational status: employed Current occupation: [employer] Current occupational exposures/hazards: No Cognitive needs: No Hearing needs: No Vision needs: No Physical Exam ED Vital Signs: Vital Signs - 24 hr 02/26/24 17:51 Temperature 98.4 F Pulse Rate 92 Respiratory Rate 20 Blood Pressure 156/103 H Pulse Oximetry 99 Oxygen Delivery Method Room Air BMI result Body Mass Index 31.5 Course Course Course Narrative: RME: 54-year-old male presents to ED for right knee pain and swelling. Patient states history of gout since his gout exacerbation. Patient states he bumped his knee against something while driving for 30 hours now you have right knee pain and swelling. Negative for leg swelling only right knee swelling. X-ray labs ordered Medical Decision Making Lab Data 02/26/24 18:28 02/26/24 18:28 Labs: Lab Results 02/26/24 Range/Units 18:28 WBC 7.2 (4.8-10.8) X10*3/uL RBC 4.58 L (4.60-5.80) X10*6/uL Hgb 13.1 L (14.0-18.0) g/dl Hct 39.5 L (42.0-52.0) % MCV 86.2 (80.0-98.0) fL MCH 28.6 (27.0-33.0) pg MCHC 33.2 (31.0-36.0) g/dl RDW 13.1 (11.0-16.0) % Plt Count 303 D (160-400) X10*3/uL MPV 9.6 (9.4-12.4) fL Immature Gran % (Auto) 0.1 (0.0-0.4) % Neut % (Auto) 65.2 (45-73) % Lymph % (Auto) 24.3 (20-40) % [place] % (Auto) 5.7 (2-11) % Eos % (Auto) 3.5 (0-4) % Baso % (Auto) 1.2 (0-2) % Lymph # (Auto) 1.8 (1.2-4.9) X10*3/uL [place] # (Auto) 0.4 (0.1-1.2) X10*3/uL Eos # (Auto) 0.3 (0.0-0.4) X10*3/uL Baso # (Auto) 0.1 (0.0-0.2) X10*3/uL Abs Immat Gran (auto) 0.01 (0.00-0.03) X10*3/uL Absolute Neuts (auto) 4.7 (2.0-8.3) x10*3/uL Absolute Nucleated RBC 0.000 (0.0-0.012) X10*3/uL Nucleated RBC % (auto) 0.0 (0.0-0.2) /100WBC Sodium 140 (135-145) mmol/L Potassium 4.1 (3.3-5.1) mmol/L Chloride 103 (96-108) mmol/L Carbon Dioxide 29 (22-29) mmol/L Anion Gap 12 (12-20) BUN 11 (9-16) mg/dL Creatinine 1.05 (0.5-1.4) mg/dL Estim Creat Clear Calc 109.2 Estimated GFR > 60 Random Glucose 88 (60-115) mg/dL Uric Acid 9.0 H (3.4-7.0) mg/dL Calcium 9.2 (8.4-10.2) mg/dL Total Bilirubin 0.3 (0.0-1.0) mg/dL AST 25 (5-37) U/L ALT 25 (0-40) U/L Alkaline Phosphatase 88 (39-117) U/L Total Protein 7.6 (6.5-8.0) g/dL Albumin 4.2 (3.5-5.0) g/dL Discharge Plan Discharge Clinical Impression: Left knee pain Patient Disposition: Left W/O Completing Treatment Prescriptions: No Action allopurinol 300 mg tablet 300 mg PO DAILY Qty: 60 0RF methotrexate sodium 2.5 mg tablet 10 mg PO QWEEK Qty: 16 2RF folic acid 1 mg tablet 1 mg PO DAILY Qty: 90 0RF prednisone 10 mg tablet 10 mg PO .COMPLEX Qty: 18 0RF Rx Instructions: 3 tab daily for 3 days, 2 tab daily for 3 days, 1 tab daily for 3 days atorvastatin 10 mg tablet 10 mg PO BEDTIME 90 Days Qty: 90 1RF sertraline 25 mg tablet 25 mg PO BEDTIME 90 Days Qty: 90 0RF triamcinolone acetonide 0.1 % cream 1 appl topical BID Qty: 15 0RF metoprolol succinate 25 mg tablet extended release 24 hr 25 mg PO DAILY 30 Days Qty: 30 1RF tramadol 50 mg tablet 50 mg PO BID PRN (Reason: pain) 10 Days Qty: 20 0RF colchicine 0.6 mg capsule 0.6 mg PO BID Discharge Date/Time: 02/26/24 22:30
[2024-02-26 18:32] LABS: MANUAL DIFF FLAG NO
[2024-02-26 18:45] LABS: Basophils Absolute Auto 0.1 X10*3/uL (0.0-0.2); Basophils Percent Auto 1.2 % (0-2); Eosinophils Absolute Auto 0.3 X10*3/uL (0.0-0.4); Eosinophils Percent Auto 3.5 % (0-4); Hematocrit 39.5 % (42.0-52.0); Hemoglobin 13.1 g/dl (14.0-18.0); Imm Gran Abs Auto 0.01 X10*3/uL (0.00-0.03); Imm Gran Pct Auto 0.1 % (0.0-0.4); Lymphocytes Absolute Auto 1.8 X10*3/uL (1.2-4.9); Lymphocytes Percent Auto 24.3 % (20-40); Mean Corpuscular HGB Conc 33.2 g/dl (31.0-36.0); Mean Corpuscular Hemoglobin 28.6 pg (27.0-33.0); Mean Corpuscular Volume 86.2 fL (80.0-98.0); Mean Platelet Volume 9.6 fL (9.4-12.4); Monocytes Absolute Auto 0.4 X10*3/uL (0.1-1.2); Monocytes Percent Auto 5.7 % (2-11); Neutrophils Absolute Auto 4.7 x10*3/uL (2.0-8.3); Neutrophils Percent Auto 65.2 % (45-73); Platelet Count 303 X10*3/uL (160-400); Red Blood Count 4.58 X10*6/uL (4.60-5.80); Red Cell Distribution Width 13.1 % (11.0-16.0); White Blood Count 7.2 X10*3/uL (4.8-10.8)
[2024-02-26 18:57] LABS: Albumin Level 4.2 g/dL (3.5-5.0); Anion Gap 12 (12-20); Aspartate Amino Transferase 25 U/L (5-37); Bilirubin Total 0.3 mg/dL (0.0-1.0); Blood Urea Nitrogen 11 mg/dL (9-16); Calcium 9.2 mg/dL (8.4-10.2); Carbon Dioxide 29 mmol/L (22-29); Chloride 103 mmol/L (96-108); Creatinine Clr Calc Pharmacy 109.2; Estimated Glomerular Filt Rate > 60; Glucose Random 88 mg/dL (60-115); Potassium 4.1 mmol/L (3.3-5.1); Sodium 140 mmol/L (135-145); Total Protein 7.6 g/dL (6.5-8.0)
[2024-02-26 19:02] LABS: Alanine Aminotransferase 25 U/L (0-40); Alkaline Phosphatase 88 U/L (39-117)
== END 2024-02-26 22:30 | disposition left against medical advice (07) ==
PROVIDERS: Physician Assistant; Emergency Provider Emergency Medicine; PCP Nurse Practitioner Family
DX: M25.562 Pain in left knee (principal); Z79.899 Other long term (current) drug therapy
CPT/HCPCS: 36415; 73564; 80053; 84550; 85025; 99281; 99283

== ENCOUNTER 2024-02-27 11:15 | Outpatient (AMB) | payer OTHER, SELFPAY ==
[2024-02-27 12:53] VITALS: BP 128/80; PULSE 91; O2SAT 98; BMI 31.5
--- NOTE | 2024-02-27 12:53 | MHC.OFFWIV ---
Intake Vital Signs 02/27/24 12:53 Height 6 ft 2 in Weight 245 lb BMI 31.5 BP 128/80 Blood Pressure Location Rt brachial Position Sitting Pulse 91 Pulse Source Pulse Oximeter Pulse Oximetry (%) 98 Oxygen Delivery Method Room Air Intake Visit Reasons: EP Gout flare-up on RT knee Intake Note: Pt is here today for a walk in visit. Pt c/o R keen pain and swelling pt states that its his gout.Pt was at [facility] [place] and had blood work done for gout. Patient Tobacco Use Status: Never used Tobacco Allergies codeine [CODEINE] Allergy (Mild, Verified 02/27/24 12:56) HIVES, vomiting ibuprofen [IBUPROFEN] Allergy (Unknown, Verified 02/27/24 12:56) HIVES Bee stings Allergy (Unknown, Uncoded 02/27/24 12:56) Swelling Medication List - Last Reconciled 02/27/24 by Garret Garcia MD allopurinol 300 mg PO DAILY atorvastatin 10 mg PO BEDTIME 90 days colchicine 0.6 mg PO BID folic acid 1 mg PO DAILY methotrexate sodium 10 mg (4 x 2.5 mg) PO QWEEK metoprolol succinate ER 25 mg PO DAILY 30 days sertraline 25 mg PO BEDTIME 90 days tramadol 50 mg PO BID PRN 10 days triamcinolone acetonide 0.1% 1 appl topical BID HPI EP Gout flare-up on RT knee HPI Details Patient is a 54-year-old gentleman with a history of gout Came with flare-up right knee for the past 3 days Patient has not taken any medication, he is supposed to be allopurinol but ran of script Has appointment coming with the primary care next week He is allergic to NSAIDs I prescribed prednisone 50 mg once a day for 5 days And tramadol 50 mg Q 8 hour for 3 days Follow with the PCP [facility] Medical History HLD (hyperlipidemia) Rotator cuff arthropathy of right shoulder Depression jail 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 Gout Seronegative rheumatoid arthritis Family History Mother Diabetes Maternal Grandfather Gout Social History Household Members: Spouse and Children Housing: House Alcohol intake: current Alcohol intake frequency: holidays/special occasions only Alcohol type: beer and hard liquor Patient Tobacco Use Status: Never used Tobacco Tobacco use type: Cigar Years Smoked: 3 years e-Cigarette/Vaping Use: Never Used Second Hand Smoke Exposure: No service: No Current occupational status: employed Current occupation: [employer] Current occupational exposures/hazards: No Cognitive needs: No Hearing needs: No Vision needs: No Review of Systems Const All systems reviewed & are unremarkable except as noted in HPI and below Physical Exam Vital Signs: Last Vital Signs Pulse 91 02/27/24 12:53 BP 128/80 02/27/24 12:53 Pulse Ox 98 02/27/24 12:53 Oxygen Delivery Method Room Air 02/27/24 12:53 BMI result Body Mass Index 31.5 Const General: no acute distress Orientation/consciousness: patient oriented x3 Eyes General: appearance normal, both eyes and all related structures Resp Effort & Inspection: normal respiratory effort and able to speak in complete sentences Neuro General: patient oriented x3 Extrem Other: Right knee tender to palpation, swelling noticed compared to left no erythema or warmth Psych Mental Status: mental status grossly normal Assessment & Plan Assessment & Plan (1) Gout flare: Code(s): M10.9 - Gout, unspecified Qualifiers: Gout site: knee Gout etiology: unspecified cause Laterality: right Qualified Code(s): M10.9 - Gout, unspecified Plan Patient is a 54-year-old gentleman with a history of gout Came with flare-up right knee for the past 3 days Patient has not taken any medication, he is supposed to be allopurinol but ran of script Has appointment coming with the primary care next week He is allergic to NSAIDs I prescribed prednisone 50 mg once a day for 5 days And tramadol 50 mg Q 8 hour for 3 days Follow with the PCP Medications: New prednisone 50 mg PO DAILY 5 days 5 tabs 0RF Changed From tramadol 50 mg PO BID 10 days PRN 20 tabs 0RF pain To tramadol 50 mg PO Q8H 3 days PRN 6 tabs 0RF pain Coding Level of Care Code Est Pt Level 3 (00266) Diagnoses Acute gout of right knee, unspecified cause M10.9 Gout site: knee Gout etiology: unspecified cause Laterality: right
== END 2024-02-27 13:01 | disposition home or self-care (01) ==
PROVIDERS: PCP Nurse Practitioner Family; Visit Provider Internal Medicine
DX: M10.9 Gout, unspecified (principal)

== ENCOUNTER → 2024-02-27 11:15 | Outpatient (BNVA) | payer OTHER, SELFPAY | PROVIDERS: PCP Nurse Practitioner Family; Visit Provider Internal Medicine | DX: M10.9 Gout, unspecified (principal) | CPT/HCPCS: 99212 ==

== ENCOUNTER 2024-03-05 08:51 | Outpatient (AMB) | payer OTHER, SELFPAY ==
[2024-03-05 09:01] VITALS: BP 138/74; PULSE 86; O2SAT 98; BMI 32.1
--- NOTE | 2024-03-05 09:01 | A.OFFPC_ITS ---
Vital Signs 03/05/24 09:01 Height 6 ft 2 in Weight 250 lb BMI 32.1 BP 138/74 Blood Pressure Location Rt brachial Position Sitting Pulse 86 Pulse Source Pulse Oximeter Pulse Oximetry (%) 98 Intake Visit Reasons: 6 mon f/u Intake Note: pt is here for 6 month f/up E Merchant Required: No Accompanied by: Self / Same As Patient Allergies codeine [CODEINE] Allergy (Mild, Verified 03/05/24 12:42) HIVES, vomiting ibuprofen [IBUPROFEN] Allergy (Unknown, Verified 03/05/24 12:42) HIVES Bee stings Allergy (Unknown, Uncoded 03/05/24 12:42) Swelling Medication List - Last Reconciled 03/05/24 by AWA Scott- allopurinol 300 mg PO DAILY atorvastatin 10 mg PO BEDTIME 90 days colchicine 0.6 mg PO BID PRN 30 days folic acid 1 mg PO DAILY indomethacin ER 75 mg PO BID PRN 30 days metoprolol succinate ER 25 mg PO DAILY 90 days sertraline 25 mg PO BEDTIME 90 days tramadol 50 mg PO Q8H PRN 3 days triamcinolone acetonide 0.1% 1 appl topical BID Tobacco use date assessed: 09/05/23 Dental Screening Dental Screen Date: 09/05/23 HPI 6 mon f/u HPI Details Chief Complaint Severe knee pain and stiffness associated with a gout flare. History of Present Illness The patient is a 54-year-old male presenting with knee pain and stiffness related to a gout flare. The gout flare started after physically plowing, worsened by a subsequent knee injury. The patient has a history of gout and hyperuricemia. Recent lab results indicated elevated uric acid levels, and x- rays from [facility] showed moderate effusion in the right knee. The patient experiences significant pain preventing knee extension for the past three weeks, exacerbated by the tightness in the tendons and swelling in the knee. He utilizes ibuprofen and aspirin as temporary relief but notes persistent and severe pain. Colchicine is taken as needed during severe gout flares, and indomethacin is used for other pain episodes. Atorvastatin and citalopram are current medications, with discontinuation of methotrexate and infrequent rheumatology visits noted. Social History - Employment: Not discussed. - Housing: Not discussed. - Education: Not discussed. - Family Status: Discussed the importanc e of family support during times of pain. - Substance Use: Uses ibuprofen and aspi rin frequently due to pain. - Exercise: Moderate physical activity r elated to manual tasks like plowing. - Functional Status: Experiences functio nal limitations due to knee pain. - Nutritional Intake: Not discussed. - Weight Management: Not discussed. Health Maintenance - Recent X-ray revealed moderate effusio n in the right knee. - Patient advised not to fast for the up coming September lab appointments. Review of Systems - Musculoskeletal: Reports severe knee p ain and inability to extend the knee. - Gastrointestinal: Reports frequent use of medications, ibuprofen, and aspirin. Physical Exam General: Cooperative, healthy appearing, comfortable, no acute distress and well developed Orientation: Patient oriented x3 Limitations: Unable to straighten right leg due to pain and swelling Head: Normal to inspection Ears: Hearing grossly normal bilaterally Nose: Normal external nose present Face and sinus: Normal facial exam Eyes: Appearance normal, both eyes and all related structures Neck: Normal visual inspection and Yes full ROM Respiratory: Normal respiratory effort and able to speak in complete sentences. Clear to auscultation bilaterally Cardiovascular: Regular rate and rhythm. Normal S1 and S2 GI: Normal to inspection. Soft to palpation and nontender Skin: No rashes or lesions noted Neuro: Patient oriented x3 Extremities: Moderate joint effusion in the right knee noted on recent x-ray. Unable to straighten right leg due to pain and swelling. Results - Labs: Elevated uric acid levels. - Imaging: Moderate effusion in the righ t knee x-ray. Plan - Continue current prescription of atorv astatin for dyslipidemia management. - Use colchicine as needed for acute gou t flares; consider adjusting based on response. - Discontinue methotrexate, not currentl y in use. - Encourage using ice and discuss the ef ficacy of frozen vegetables for knee swelling. - Prepare for laboratory work in the nan r future, with a follow-up in September. - Discuss potentially organizing an appo intment with a new credentialing assistant if needed. - Refill medications including allopurin ol. - Anticipate a more detailed physical in September. Patient was informed and verbally consented to the use of an ambient scribe for clinic note documentation during this visit. Discussion Notes During the visit, I discussed the current gout flare and associated knee effusion. The management includes colchicine use for severe flares and indomethacin for interim pain relief. I emphasized the importance of medication adherence, especially for atorvastatin, to manage dyslipidemia. We discussed adjusting lifestyle interventions, like icing the area with frozen vegetables to manage swelling. The need for further follow-up with hematology was addressed, considering prior discontinued methotrexate. The patient expressed understanding and consented to the outlined plan, including preparing for follow-up labs and physical exams in September without fasting requirements this time. Patient Instructions - Take colchicine as needed for severe g out flares. - Use frozen vegetables as ice packs for knee swelling. - Continue taking atorvastatin. - Prepare for lab work in September, with no fasting required. - Contact the clinic if symptoms worsen or do not improve. - Plan to attend follow-up appointments. 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 Gout Seronegative rheumatoid arthritis Surgical History No pertinent past surgical history Family History Mother Diabetes Maternal Grandfather Gout Social History Household Members: Spouse and Children Housing: House Alcohol intake: current Alcohol intake frequency: holidays/special occasions only Alcohol type: beer and hard liquor Patient Tobacco Use Status: Never used Tobacco Tobacco use type: Cigar Years Smoked: 3 years e-Cigarette/Vaping Use: Never Used Second Hand Smoke Exposure: No service: No Current occupational status: employed Current occupation: [employer] Current occupational exposures/hazards: No Cognitive needs: No Hearing needs: No Vision needs: No Questionnaire PHQ-9 Over the last 2 weeks, how often have you been bothered by any of the following problems? 1. Little interest or pleasure in doing things: not at all 2. Feeling down, depressed, or hopeless: not at all 3. Trouble falling or staying asleep, or sleeping too much: not at all 4. Feeling tired or having little energy: not at all 5. Poor appetite or overeating: not at all 6. Feeling bad about yourself - or that you are a failure or have let yourself or your family down: not at all 7. Trouble concentrating on things, such as reading the newspaper or watching television: not at all 8. Moving or speaking so slowly that other people could have noticed. Or the opposite - being so fidgety or restless that you have been moving around a lot more than usual: not at all 9. Thoughts that you would be better off or of hurting yourself in some way: not at all Total score: 0 Depression Screening Interpretation: Negative Depression Screening Done: Yes 93318 - PHQ-9 Billing: Yes Source: Developed by Drs. Alex Herrera, Lorena Swanson, Joss Boyd and colleagues, with an educational antonio from [employer]. Thrive Questionnaire Date Thrive assessed: 03/05/24 I am a: Patient What is your living situation today?: I have a steady place to live Within the past 12 months, did the food you bought not last and you didn't have the money to get more?: Never true Within the past 12 months, did you worry whether your food would run out before you got money to buy more?: Never true Do you have trouble paying for medicines?: No Do you have trouble getting transportation to medical appointments?: No Do you have trouble paying your heating and electricity bill?: No Do you have trouble taking care of your child, family member or friend?: No Do you have trouble with day-to-day activities such as bathing, preparing meals, shopping, managing finances, etc.?: No Are you currently unemployed and looking for a job?: No Are you interested in more education?: No Please select the resources that you would like help with: None Currently or been in a relationship where the following occur: No concerns reported THRIVE Score: 0 AUDIT C Alcohol Use Questionnaire (AUDIT-C) 1. How often do you have a drink containing alcohol?: 2-4 times a month 2. How many drinks containing alcohol do you have on a typical day when you are drinking?: 3 or 4 3. How often do you have six or more drinks on one occasion?: Less than monthly Total Score: 4 Score Reviewed/Action Taken: Yes SLAVA-7 AMB Questionnaire SLAVA-7 Date SLAVA - 7 assessed: 03/05/24 Feeling nervous, anxious, or on edge: 0 = Not at all Not being able to stop or control worryin = Not at all Worrying too much about different things: 0 = Not at all Trouble relaxin = Not at all Being so restless that it is hard to sit still: 0 = Not at all Becoming easily annoyed or irritable: 0 = Not at all Feeling afraid as if something awful might happen: 0 = Not at all Total SLAVA-7 score (0-4 normal; 5-9 mild; 10-14 moderate; 15-21 severe): 0 Source: Developed by Drs. Alex Herrera, Lorena Swanson, Joss Boyd and colleagues, with an educational antonio from [employer]. SLAVA-7 Assessment Billing SLAVA-7 Assessment Tool: SLAVA-7 Assessment 46099 Physical exam (Primary Care) Vital Signs: Last Vital Signs Pulse 86 03/05/24 09:01 BP 138/74 03/05/24 09:01 Pulse Ox 98 03/05/24 09:01 BMI result Body Mass Index 32.1 Tobacco/Smoking Status: Tobacco use Status Tobacco use date assessed 09/05/23 03/05/24 09:04 Patient Tobacco Use Status Never used Tobacco 03/05/24 09:04 Tobacco use type Cigar 03/05/24 09:04 e-Cigarette/Vaping Use Never Used 03/05/24 09:04 PHQ-9: PHQ-9 Score PHQ-9: Total score 0 03/05/24 10:14 Depression Screening Interpretation: Negative Thrive Assessment: Date of Thrive Assessment Date Thrive assessed 03/05/24 03/05/24 09:04 Currently or been in a relationship where the following occur: No concerns reported Coding Level of Care Code Est Pt Level 3 (25483) Diagnoses Acute gout of right knee, unspecified cause M10.9 Gout etiology: unspecified cause Gout site: knee Laterality: right Idiopathic chronic gout without tophus, unspecified site M1A.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 Chronicity: chronic Gout etiology: idiopathic Gout site: unspecified site Presence of tophus: without tophus Additional Codes SLAVA-7 Assessment Billing - SLAVA-7 Assessment Tool: SLAVA-7 Assessment 83956 ([id number]) PHQ-9 - 42421 - PHQ-9 Billing: Yes ([id number]) Assessment & Plan Assessment & Plan (1) Gout flare: Code(s): M10.9 - Gout, unspecified Category: Medical Qualifiers: Gout etiology: unspecified cause Gout site: knee Laterality: right Qualified Code(s): M10.9 - Gout, unspecified (2) Gout: Code(s): M10.9 - Gout, unspecified Category: Medical Qualifiers: Chronicity: chronic Gout etiology: idiopathic Gout site: unspecified site Presence of tophus: without tophus Qualified Code(s): M1A.00X0 - Idiopathic chronic gout, unspecified site, without tophus (tophi) Plan . Orders: Orders Uric Acid Today M10.9 - Gout, unspecified, M1A.00X0 - Idiopathic chronic gout, unspecified site, without tophus (tophi) Comprehensive Met. Panel Today M10.9 - Gout, unspecified, M1A.00X0 - Idiopathic chronic gout, unspecified site, without tophus (tophi) Medications: New indomethacin ER 75 mg PO BID PRN 60 caps 2RF knee pain (acute) 30 days Changed From colchicine 0.6 mg PO BID To colchicine 0.6 mg PO BID PRN 60 caps 0RF Gout 30 days From metoprolol succinate ER 25 mg PO DAILY 30 tabs 1RF 30 days To metoprolol succinate ER 25 mg PO DAILY 90 tabs 1RF 90 days Refilled sertraline 25 mg PO BEDTIME 90 tabs 0RF 90 days allopurinol 300 mg PO DAILY 60 tabs 3RF atorvastatin 10 mg PO BEDTIME 90 tabs 1RF 90 days Discontinued methotrexate sodium Discontinued Reason: Doctor's Order 10 mg (4 x 2.5 mg) PO QWEEK 16 tabs 2RF M06.00 - Rheumatoid arthritis without rheumatoid factor, unspecified site
== END 2024-03-05 12:48 | disposition home or self-care (01) ==
PROVIDERS: PCP Nurse Practitioner Family; Visit Provider Nurse Practitioner Family
DX: M10.9 Gout, unspecified (principal)

== ENCOUNTER → 2024-03-05 08:51 | Outpatient (BNVA) | payer OTHER, SELFPAY | PROVIDERS: PCP Nurse Practitioner Family; Visit Provider Nurse Practitioner Family | DX: M1A.00X0 Idiopathic chronic gout, unspecified site, without tophus (tophi) (principal) | CPT/HCPCS: 96127; 99212 ==

== ENCOUNTER 2024-07-09 12:33 | Outpatient (REF) | payer OTHER, SELFPAY ==
--- NOTE | ~2024-07-09 | US_ITS ---
EXAMINATION: US TRIPLEX LOWER EXTREMITY, RIGHT CLINICAL INFORMATION: Rule out DVT. Right leg edema. COMPARISON: None available. TECHNIQUE: Color-flow triplex imaging with spectral analysis and compression Doppler were performed on the right lower extremity. FINDINGS: Respiratory variation, normal compression and augmented flow are noted throughout the right lower extremity. The visualized common femoral vein, superficial femoral vein, profunda femoral vein, popliteal vein and midcalf peroneal and posterior tibial venous segments show no evidence of deep venous thrombosis. There is no Colmenares's cyst. US/US venous duplex LE RT IMPRESSION: No evidence of deep venous thrombosis involving the right lower extremity. Electronically signed by: Avinash Zuniga MD 07/09/2024 01:46 PM EDT
--- OUTSIDE RECORDS SUMMARY | 2024-07-09 14:52 | XMS_ITS | Clinical Summary ---
Author Organization [facility] Address [address] [place] [address] Care Team Providers Care Mimeographer Name Role Phone Naveed Simons MD Primary Care Provider [phone] Allergies Active Allergy Reactions Criticality Noted Date Comments Bee Venom Protein (Honey Bee) Hives 2019 Medications lisinopriL (PRINIVIL,ZESTR IL) 20 mg tablet 20 mg. 0 Active folic acid (FOLVITE) 1 mg tablet 1 mg. 0 Active atorvastatin (LIPITOR) 10 mg tablet 10 mg. 0 Active metoprolol succinate (TOPROL-XL) 25 mg 24 hr tablet 25 mg. 0 Active traMADoL (ULTRAM) 50 mg tablet 50 mg. 0 Active allopurinoL (ZYLOPRIM) 300 mg tablet 300 mg. 0 Active meloxicam (MOBIC) 15 mg tablet Take 15 mg by mouth 1 (one) time each day. Active colchicine 0.6 mg tablet Take 0.6 mg by mouth 1 (one) time each day. Active methotrexate 2.5 mg tablet Take by mouth 3 (three) doses per week. Take doses 12 (twelve) hours apart from each other. Follow directions carefully, and ask to explain any part you do not understand. Take exactly as directed. Active Active Problems No known active problems Social History Tobacco Use Types Packs/Day Years Used Date Smoking Tobacco: Never Sex and Gender Information Value Date Recorded Sex Assigned at Not on file Legal Sex Male 12:59 PM EST Gender Identity Not on file Sexual Orientation Not on file Last Filed Vital Signs Vital Sign Reading Time Taken Comments Blood Pressure 147/95 01/26/2020 1:07 PM EST Pulse 98 01/26/2020 1:07 PM EST Temperature 36.7 ??C (98 ??F) 01/26/2020 1:07 PM EST Respiratory Rate 18 01/26/2020 1:07 PM EST Oxygen Saturation 96% 01/26/2020 1:07 PM EST Inhaled Oxygen Concentration - - Weight 121.6 kg (268 lb) 01/26/2020 1:07 PM EST Height 188 cm (6' 2 ) 01/26/2020 1:07 PM EST Body Mass Index 34.41 01/26/2020 1:07 PM EST Plan of Treatment Health Maintenance Due Date Last Done Comments CT Colonography 1972 Colonoscopy 1972 Colorectal Cancer Screening 1972 FIT-DNA 1972 FIT 1972 FOBT 1972 Sigmoidoscopy 1972 Annual Physical Exam 02/20/1990 Tdap and Td Vaccines Adult 02/20/1991 Pneumococcal Vaccine: 50+ Ye ars (1 of 1 - PCV) 02/20/2022 Zoster Vaccines (1 of 2) 02/20/2022 COVID-19 Vaccine (1 - 2023-2 5 season) 2023 Influenza Vaccine (Season Ended) 2024 HIB Vaccines Aged Out No longer eligi ble based on patient's age to complete this topic HPV Vaccines Aged Out No longer eligi ble based on patient's age to complete this topic Hepatitis A Vaccines Aged Out No long er eligible based on patient's age to complete this topic IPV Vaccines Aged Out No longer eligi ble based on patient's age to complete this topic Meningococcal Vaccine Aged Out No jamin do eligible based on patient's age to complete this topic RSV <20 Months Aged Out No longer guy gible based on patient's age to complete this topic Insurance [employer] Care Teams Mimeographer Relationship Specialty Start Date End Date Naveed Simons MD [address] [place] [id number] PCP - General 01/26/20
--- OUTSIDE RECORDS SUMMARY | 2024-07-09 14:52 | XMS_ITS | Clinical Summary ---
Author Organization [facility] Facility Address [address] [place] [address], [place] [address] Care Team Providers Care Real Estate Recruiter Name Role Phone Niedermadhuri Naveed RICH Primary Care Provider [phone] Encounters Date Type Department Care Team Description 04/17/2024 Telephone [facility] [address] [place] [address] Maia Mishra from Last 3 Months Social History Tobacco Use Types Packs/Day Years Used Date Smoking Tobacco: Never Assessed Sex and Gender Information Value Date Recorded Sex Assigned at Not on file Legal Sex Male 2:47 PM EST Gender Identity Not on file Sexual Orientation Not on file Plan of Treatment Upcoming Encounters Date Type Department Care Team (Late st Contact Info) Description 07/17/2024 3:00 PM EDT Office Visit [facility] [address] [place] [address] Esteban Jasso [address] [place] [address] Health Maintenance Due Date Last Done Comments Hepatitis B Vaccine (1 of 3 - 19+ 3-dose series) 02/20 Colorectal Cancer Screening: Annual FOBT 02/20/2021 Colorectal Cancer Screening: Colonoscopy 02/20/2021 Colorectal Cancer Screening: Sigmoidoscopy 02/20/2021 Pneumococcal Vaccine: 50+ Years (1 of 1 - PCV) 022 Influenza Vaccine (Season Ended) [address] [place] [address] [place] [address] [facility] Medicaid Care Teams Real Estate Recruiter Relationship Specialty Start Date End Date Naveed Webster NP [facility] [place] [address] PCP - General Nurse Practitioner 04/09/24
== END 2024-07-09 12:34 | disposition home or self-care (01) ==
LOC: HO.US 12:33
PROVIDERS: PCP Nurse Practitioner Family; Visit Provider Nurse Practitioner Family
DX: R60.0 Localized edema (principal)
CPT/HCPCS: 93971

== ENCOUNTER → 2024-07-09 12:37 | Outpatient (BNV) | payer OTHER, SELFPAY | PROVIDERS: PCP Nurse Practitioner Family; Visit Provider Radiology Diagnostic Radiology | DX: R22.41 Localized swelling, mass and lump, right lower limb (principal) | CPT/HCPCS: 93971 ==

== ENCOUNTER 2024-08-20 08:30 | Outpatient (REF) | payer OTHER, SELFPAY ==
--- OUTSIDE RECORDS SUMMARY | 2024-08-20 08:49 | XMS_ITS | Clinical Summary ---
Author Organization [facility] Address [address] [place] [address] Care Team Providers Care Transit Survey Worker Name Role Phone Naveed Simons MD Primary Care Provider [phone] Allergies Active Allergy Reactions Criticality Noted Date [...] this topic Insurance [employer] Care Teams Transit Survey Worker Relationship Specialty Start Date End Date Naveed Simons MD [address] [place] [id number] PCP - General 01/26/20
[2024-08-20 10:20] LABS: MANUAL DIFF FLAG NO
[2024-08-20 10:44] LABS: Basophils Absolute Auto 0.1 X10*3/uL (0.0-0.2); Eosinophils Absolute Auto 0.3 X10*3/uL (0.0-0.4); Hematocrit 37.4 % (42.0-52.0); Hemoglobin 11.9 g/dl (14.0-18.0); Imm Gran Abs Auto 0.01 X10*3/uL (0.00-0.03); Imm Gran Pct Auto 0.2 % (0.0-0.4); Lymphocytes Absolute Auto 2.1 X10*3/uL (1.2-4.9); Lymphocytes Percent Auto 34.7 % (20-40); Mean Corpuscular HGB Conc 31.8 g/dl (31.0-36.0); Mean Corpuscular Hemoglobin 27.4 pg (27.0-33.0); Mean Platelet Volume 10.1 fL (9.4-12.4); Monocytes Absolute Auto 0.6 X10*3/uL (0.1-1.2); Monocytes Percent Auto 10.5 % (2-11); Neutrophils Absolute Auto 2.9 x10*3/uL (2.0-8.3); Neutrophils Percent Auto 47.6 % (45-73); Platelet Count 264 X10*3/uL (160-400); Red Blood Count 4.35 X10*6/uL (4.60-5.80); Red Cell Distribution Width 13.9 % (11.0-16.0)
[2024-08-20 10:52] LABS: Appearance Urine Clear; Color Urine Yellow; Glucose Urine UA Negative (Negative); Leukocyte Esterase Urine Negative (Negative); Nitrite Urine Negative (Negative); PH 5.5 (5.0-9.0); Specific Gravity - Urine >= 1.030 (1.005-1.025); Urine Blood Negative (Negative); Urine Ketones Trace mg/dL (Negative); Urine Protein Trace mg/dL (Neg-Trace)
[2024-08-20 11:26] LABS: Alanine Aminotransferase 28 U/L (0-40); Albumin Level 4.7 g/dL (3.5-5.0); Alkaline Phosphatase 80 U/L (39-117); Anion Gap 11 (12-20); Aspartate Amino Transferase 25 U/L (5-37); Bilirubin Total 0.6 mg/dL (0.0-1.0); Blood Urea Nitrogen 31 mg/dL (9-16); Calcium 10.1 mg/dL (8.4-10.2); Carbon Dioxide 32 mmol/L (22-29); Chloride 105 mmol/L (96-108); Estimated Glomerular Filt Rate > 60; Glucose Fasting 79 mg/dL (60-99); Potassium 4.9 mmol/L (3.3-5.1); Sodium 143 mmol/L (135-145); Total Protein 7.9 g/dL (6.5-8.0)
[2024-08-20 11:35] LABS: Prostate Specific Antigen Scr 0.39 ng/mL (<0.05-4.0)
[2024-08-20 11:45] LABS: TSH reflex Free T4 2.91 uIU/mL (0.32-4.0)
== END 2024-08-20 08:31 | disposition home or self-care (01) ==
LOC: HO.HMGCLDS 08:30
PROVIDERS: PCP Nurse Practitioner Family; Visit Provider Nurse Practitioner Family
DX: I10 Essential (primary) hypertension (principal); Z12.5 Encounter for screening for malignant neoplasm of prostate
CPT/HCPCS: 36415; 80053; 81003; 84153; 84443; 85025

== ENCOUNTER 2024-11-07 15:45 | Outpatient (AMB) | payer OTHER, SELFPAY ==
--- OUTSIDE RECORDS SUMMARY | 2024-11-07 15:48 | XMS_ITS | Encounter Summary ---
Author Organization [facility], Address [address] [place] [address] Phone Care Team Providers Care Advertising Rep Name Role Phone Garret Garcia MD Primary Care Provider [phone] Encounter Details Date Type Department Care Team (Late st Contact Info) Description 07/17/2024 Documentation Only [facility], [address] [place] [address] Esteban Jasso, [address] [place] [address] Social History Tobacco Use Types Packs/Day Years Used Date Smoking Tobacco: Never Assessed Sex and Gender Information Value Date Recorded Sex Assigned at Not on file Legal Sex Male 2:47 PM EST Gender Identity Not on file Sexual Orientation Not on file documented as of this encounter Plan of Treatment Not on file documented as of this encounter Visit Diagnoses Not on filedocumented in this encounter Care Teams Advertising Rep Relationship Specialty Start Date End Date Garret Garcia MD [facility] [place] [address] PCP - General Internal Medicine 08/06/24 documented as of this encounter
--- OUTSIDE RECORDS SUMMARY | 2024-11-07 15:48 | XMS_ITS | Clinical Summary ---
Author Organization [employer] Address [address] [place] [address] Care Team Providers Care Production Controller Name Role Phone Naveed Simons MD Primary Care Provider [phone] Allergies Active Allergy Reactions Criticality Noted Date [...] 98 01/26/2020 1:07 PM EST Temperature 36.7 C (98 F) 01/26/2020 1:07 PM EST Respiratory Rate 18 [...] - 2023-2 5 season) 2023 Influenza Vaccine (#1) 2024 HIB Vaccines Aged Out No longer eligi ble based on patient's age to complete this topic HPV Vaccines (No Doses Required) Completed Hepatitis A Vaccines Aged Out No long [...] this topic Insurance [employer] Care Teams Production Controller Relationship Specialty Start Date End Date Naveed Simons MD [address] [place] [address] PCP - General 01/26/20
--- NOTE | 2024-11-07 16:06 | MHC.PC.OV ---
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 Post Required: No Accompanied by: Self / Same As Patient Allergies codeine (CODEINE) Allergy (Mild, Verified 11/07/24 16:08) HIVES, vomiting ibuprofen (IBUPROFEN) Allergy (Unknown, Verified 11/07/24 16:08) HIVES Bee stings Allergy (Unknown, Uncoded 03/05/24 12:42) Swelling Medication List - Last Reconciled 11/07/24 by Naveed Webster, [facility] allopurinol 300 mg PO DAILY atorvastatin 10 mg PO BEDTIME 90 days colchicine 0.6 mg PO BID PRN 30 days folic acid 1 mg PO DAILY indomethacin ER 75 mg PO BID PRN 30 days metoprolol succinate ER 25 mg PO DAILY 90 days sertraline 25 mg PO BEDTIME 90 days Tobacco use date assessed: 09/05/23 Dental Screening Dental Screen Date: 11/07/24 Did you have a dental visit in the last 12 months?: Yes Did you have a dental problem in the last 6 months where you did not have access to dental care?: No Was dental information given to patient?: Patient has dentist HPI Annual PE-Reschedule HPI Details History of Present Illness The patient is a 54-year-old male presenting with a physical exam. He has a history of rheumatoid arthritis, which has been associated with joint aches and pains, particularly in the right knee. 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 Currently, he experiences right knee pain, which is visibly swollen and exhibits discomfort during extension and flexion, along with crepitus. The patient also has a history of gout, which has been managed in the past by rheumatology. In March 2024, he was hospitalized for acute respiratory distress syndrome, severe pneumonia, and septic shock, which subsequently led to a pulmonary embolism. He has since recovered well from these conditions. Additionally, the patient has a history of normocytic anemia, which was evaluated by hematology and attributed to rheumatoid disease or methotrexate use. NOTE: elevated BP, he did not take his medications yet today. Health Maintenance pt already has cologuard at home, i will do it . Social History Review of Systems - Musculoskeletal: Reports joint aches and pains, particularly in the right knee -denies any cp, sob, abd pain, blood in stool, constipation, diarrhea, urinary issues, denies any si or hi Physical Exam General: Cooperative, healthy appearing, comfortable, no acute distress and well developed Orientation: Patient oriented x3 Limitations: No limitations Head: Normal to inspection Ears: Hearing grossly normal bilaterally Nose: Normal external nose present Face and sinus: Normal facial exam Eyes: Appearance normal, both eyes and all related structures Neck: Normal visual inspection and Yes full ROM Respiratory: Normal respiratory effort and able to speak in complete sentences. Clear to auscultation bilaterally Cardiovascular: Regular rate and rhythm. Normal S1 and S2 GI: Normal to inspection. Soft to palpation and nontender : declined exam Skin: No rashes or lesions noted Neuro: Patient oriented x3 Extremities: Normal to inspection, neg lachmans, mcmurrays, + crepitus to right knee with extension and flexion. + swelling noted Results Plan The patient will undergo a repeat X-ray of the right knee to assess the current condition and any progression of joint changes. Given the history of rheumatoid arthritis and gout, continued monitoring of joint symptoms is advised, and re-evaluation by rheumatology may be considered if symptoms persist or worsen. The patient's normocytic anemia will continue to be monitored, considering its previous association with rheumatoid disease and methotrexate use. 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 Gout Seronegative rheumatoid arthritis Surgical History No pertinent past surgical history Family History Mother Diabetes Maternal Grandfather Gout Social History Household Members: Spouse and Children Housing: House Alcohol intake: current Alcohol intake frequency: holidays/special occasions only Alcohol type: beer and hard liquor Patient Tobacco Use Status: Never used Tobacco Tobacco use type: Cigar Years Smoked: 3 years e-Cigarette/Vaping Use: Never Used Second Hand Smoke Exposure: No service: No Current occupational status: employed Current occupation: [employer] Current occupational exposures/hazards: No Cognitive needs: No Hearing needs: No Vision needs: No Questionnaire PHQ-9 Over the last 2 weeks, how often have you been bothered by any of the following problems? 1. Little interest or pleasure in doing things: more than half the days 2. Feeling down, depressed, or hopeless: not at all 3. Trouble falling or staying asleep, or sleeping too much: not at all 4. Feeling tired or having little energy: several days 5. Poor appetite or overeating: not at all 6. Feeling bad about yourself - or that you are a failure or have let yourself or your family down: not at all 7. Trouble concentrating on things, such as reading the newspaper or watching television: not at all 8. Moving or speaking so slowly that other people could have noticed. Or the opposite - being so fidgety or restless that you have been moving around a lot more than usual: not at all 9. Thoughts that you would be better off or of hurting yourself in some way: not at all Total score: 3 Depression Screening Interpretation: Negative Depression Screening Done: Yes 24128 - PHQ-9 Billing: Yes Source: Developed by Drs. Alex Herrera, Lorena Swanson, Joss Boyd and colleagues, with an educational anotnio from [employer]. Thrive Questionnaire Date Thrive assessed: 11/07/24 I am a: Patient What is your living situation today?: I have a place to live, but I am worried about losing it in the future Within the past 12 months, did the food you bought not last and you didn't have the money to get more?: Never true Within the past 12 months, did you worry whether your food would run out before you got money to buy more?: Never true Do you have trouble paying for medicines?: No Do you have trouble getting transportation to medical appointments?: No Do you have trouble paying your heating and electricity bill?: No Do you have trouble taking care of your child, family member or friend?: No Do you have trouble with day-to-day activities such as bathing, preparing meals, shopping, managing finances, etc.?: No Are you currently unemployed and looking for a job?: No Are you interested in more education?: No Please select the resources that you would like help with: None Currently or been in a relationship where the following occur: No concerns reported THRIVE Score: 1 SLAVA-7 AMB Questionnaire SLAVA-7 Date SLAVA - 7 assessed: 11/07/24 Feeling nervous, anxious, or on edge: 0 = Not at all Not being able to stop or control worryin = Not at all Worrying too much about different things: 0 = Not at all Trouble relaxin = Not at all Being so restless that it is hard to sit still: 0 = Not at all Becoming easily annoyed or irritable: 0 = Not at all Feeling afraid as if something awful might happen: 0 = Not at all Total SLAVA-7 score (0-4 normal; 5-9 mild; 10-14 moderate; 15-21 severe): 0 Source: Developed by Drs. Alex Herrera, Lorena Swanson, Joss Boyd and colleagues, with an educational antonio from [employer]. SLAVA-7 Assessment Billing SLAVA-7 Assessment Tool: SLAVA-7 Assessment 42226 Physical exam (Primary Care) Vital Signs: Last Vital Signs Temp 98.7 F 11/07/24 16:07 Pulse 74 11/07/24 16:07 Resp 16 11/07/24 16:07 BP 130/90 H 11/07/24 16:07 Pulse Ox 98 11/07/24 16:07 BMI result Body Mass Index 31.5 Tobacco/Smoking Status: Tobacco use Status Tobacco use date assessed 09/05/23 11/07/24 16:13 Patient Tobacco Use Status Never used Tobacco 11/07/24 16:13 Tobacco use type Cigar 11/07/24 16:13 e-Cigarette/Vaping Use Never Used 11/07/24 16:13 PHQ-9: PHQ-9 Score PHQ-9: Total score 3 11/07/24 16:13 Depression Screening Interpretation: Negative Thrive Assessment: Date of Thrive Assessment Date Thrive assessed 11/07/24 11/07/24 16:13 Currently or been in a relationship where the following occur: No concerns reported Coding Level of Care Code Est Pt Level 3 (28530) Est Pt Prev Care 40-64y(98827) Diagnoses Right knee pain M25.561 Normocytic anemia D64.9 Encounter for routine adult physical exam with abnormal findings Z00. Idiopathic chronic gout without tophus, unspecified site M1A.00X0 Gout site: unspecified site Gout etiology: idiopathic Chronicity: chronic Presence of tophus: without tophus HTN (hypertension) I10 Additional Codes SLAVA-7 Assessment Billing - SLAVA-7 Assessment Tool: SLAVA-7 Assessment 32250 ([id number]) PHQ-9 - 38657 - PHQ-9 Billing: Yes ([id number]) Assessment & Plan Assessment & Plan (1) Right knee pain: Code(s): M25.561 - Pain in right knee Category: Medical (2) Normocytic anemia: Code(s): D64.9 - Anemia, unspecified Category: Medical (3) Encounter for routine adult physical exam with abnormal findings: Code(s): Z00. - Encounter for general adult medical examination with abnormal findings Category: Medical (4) Gout: Code(s): M10.9 - Gout, unspecified Category: Medical Qualifiers: Gout site: unspecified site Gout etiology: idiopathic Chronicity: chronic Presence of tophus: without tophus Qualified Code(s): M1A.00X0 - Idiopathic chronic gout, unspecified site, without tophus (tophi) (5) HTN (hypertension): Code(s): I10 - Essential (primary) hypertension Category: Medical Plan . Orders: Orders TSH reflex Free T4 Today Z00.01 - Encounter for general adult medical examination with abnormal findings UA CC w/rflx Micro + Cult Today Z00.01 - Encounter for general adult medical examination with abnormal findings Vitamin D 25-OH Total Today E55.9 - Vitamin D deficiency, unspecified Reticulocyte Count Today D64.9 - Anemia, unspecified, Z00.01 - Encounter for general adult medical examination with abnormal findings IRON PROFILE Today D64.9 - Anemia, unspecified, Z00.01 - Encounter for general adult medical examination with abnormal findings Complete Blood Count Auto Diff Today Z00.01 - Encounter for general adult medical examination with abnormal findings Comprehensive [place]. Panel Fast Today Z00.01 - Encounter for general adult medical examination with abnormal findings Lipid Panel Today Z00.01 - Encounter for general adult medical examination with abnormal findings Prostate Specific Antigen Scr Today Z12.5 - Encounter for screening for malignant neoplasm of prostate XR knee RT 2V Today M25.561 - Pain in right knee Lactate Dehydrogenase Today D64.9 - Anemia, unspecified, Z00.01 - Encounter for general adult medical examination with abnormal findings Vitamin B12 and Folate Today D64.9 - Anemia, unspecified, Z00.01 - Encounter for general adult medical examination with abnormal findings Ferritin Today D64.9 - Anemia, unspecified, Z00.01 - Encounter for general adult medical examination with abnormal findings Uric Acid Today M1A.00X0 - Idiopathic chronic gout, unspecified site, without tophus (tophi) AMB EKG-In Office Today Z00.01 - Encounter for general adult medical examination with abnormal findings
[2024-11-07 16:07] VITALS: BP 130/90; PULSE 74; RESP 16; TEMP 37.1; O2SAT 98; BMI 31.5
== END 2024-11-07 16:49 | disposition home or self-care (01) ==
LOC: HO.HMCC 15:46
PROVIDERS: PCP Nurse Practitioner Family; Visit Provider Nurse Practitioner Family
DX: Z00.01 Encounter for general adult medical examination with abnormal findings (principal); M25.561 Pain in right knee; D64.9 Anemia, unspecified; M1A.00X0 Idiopathic chronic gout, unspecified site, without tophus (tophi); I10 Essential (primary) hypertension

== ENCOUNTER → 2024-11-07 15:45 | Outpatient (BNVA) | payer OTHER, SELFPAY | PROVIDERS: PCP Nurse Practitioner Family; Visit Provider Nurse Practitioner Family | DX: Z00.01 Encounter for general adult medical examination with abnormal findings (principal); M06.9 Rheumatoid arthritis, unspecified; M25.561 Pain in right knee; D64.9 Anemia, unspecified; I10 Essential (primary) hypertension; M1A.00X0 Idiopathic chronic gout, unspecified site, without tophus (tophi) | CPT/HCPCS: 93005; 96127; 99212; 99396 ==